=== PATIENT | female | born 2005 | race Caucasian/White ===

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

== ENCOUNTER 2025-01-29 07:44 | Outpatient (CLI) | payer BC, SELFPAY | END 2025-01-29 07:45 | disposition home or self-care (01) | LOC: US 07:45 | PROVIDERS: PCP Family Medicine; Visit Provider Obstetrics & Gynecology | DX: O24.419 Gestational diabetes mellitus in pregnancy, unspecified control (principal); Z3A.19 19 weeks gestation of pregnancy | CPT/HCPCS: 76811 ==

== ENCOUNTER 2025-04-03 12:59 | Outpatient (CLI) | payer BC, SELFPAY ==
--- NOTE | 2025-04-03 13:00 | CRLHL7_ITS ---
For Patients: As a result of the Century Cures Act, medical imaging exams and procedure reports are released immediately into your electronic medical record. You may view this report before your referring provider. If you have questions, please contact your health care provider. OB ULTRASOUND FOLLOW-UP, 04/03/2025 CLINICAL HISTORY: Type 2 diabetes mellitus with hyperglycemia. TECHNIQUE: Real time delgado scale imaging of the fetus was performed. Transabdominal imaging performed. COMPARISON: 01/29/2025, 12/17/2024, 10/29/2024. FINDINGS: LMP: 08/25/2024. OBED by US: 06/24/2025. GA: 28 weeks 2 days. CERVIX: Not visualized. POSITIONING: Vertex. AMNIOTIC FLUID: 5.8 cm SDP. PLACENTA: Technique: TA. Placenta Position: Posterior, right wall. DOPPLERS: Heart Rate: 145 bpm. BIOMETRY: BPD: 8.1 cm, 32 weeks 4 days. >97% HC: 29.1 cm, 32 weeks 1 day. >97% AC: 27.0 cm, 31 weeks 0 days. >97% FL: 5.5 cm, 29 weeks 0 days. 58.2% FL/AC Ratio: 20.4% HC/AC Ratio: 1.1. EFW: 1613 grams, 3 lb, 9 oz. Age by this US: 31 weeks 1 day. OBED by this US: 06/04/2025. Percentile by OBED: >97% IMPRESSION: 1. Sonographic gestational age 31 weeks 1 day and sonographic due date 06/04/2025. Sonographic age is 20 days ahead of the clinical age. 2. Estimated weight greater than 97th percentile. BPD, HC and AC are all greater than 97th percentile. 3. Multiple small placental lakes are present, likely incidental. Jack Fontana M.D. Diagnostic Radiologist [email or web address] Transcribed: 12:52 pm DW/Dictated by: Jack Fontana MD @ 04/04/2025 12:32:00 PM (Electronically Signed)
== END 2025-04-03 13:00 | disposition home or self-care (01) ==
LOC: US 12:59
PROVIDERS: PCP Family Medicine; Visit Provider Obstetrics & Gynecology
DX: O24.419 Gestational diabetes mellitus in pregnancy, unspecified control (principal); O99.213 Obesity complicating pregnancy, third trimester; E66.01 Morbid (severe) obesity due to excess calories; Z68.41 Body mass index [BMI] 40.0-44.9, adult; O36.63X0 Maternal care for excessive fetal growth, third trimester, not applicable or unspecified; Z3A.28 28 weeks gestation of pregnancy
CPT/HCPCS: 76816; 87086

== ENCOUNTER 2025-04-03 14:17 | Outpatient (CLI) | payer BC, SELFPAY | END 2025-04-03 14:18 | disposition home or self-care (01) | LOC: NFLDREF 14:17 | PROVIDERS: PCP Family Medicine; Visit Provider Obstetrics & Gynecology | DX: R10.2 Pelvic and perineal pain (principal); Z11.3 Encounter for screening for infections with a predominantly sexual mode of transmission | CPT/HCPCS: 86592; 87086 ==

== ENCOUNTER 2025-04-29 13:45 | Outpatient (CLI) | payer BC, SELFPAY ==
--- NOTE | 2025-04-29 14:00 | CRLHL7_ITS ---
For Patients: As a result of the Cures Act, medical imaging exams and procedure reports are released immediately into your electronic medical record. You may view this report before your referring provider. If you have questions, please contact your health care provider. OB ULTRASOUND OBED by US: 06/24/2025. GA: 32 w, 0 d. Single. Comparison: Ultrasound 04/03/2025, 01/29/2025, 12/17/2024. INDICATION: Obesity. TECHNIQUE: Real time grayscale imaging of the fetus was performed. Transabdominal. CERVIX: Not visualized. POSITIONING: Vertex. AMNIOTIC FLUID: 5.6 cm. SDP (N: greater than 2 x 1 cm) BIOPHYSICAL PROFILE: 2: Gross body movements 2: tone 2: Respiratory activity 2: Amniotic fluid SDP (N: greater than 2 x 1 cm) 06/20: Total score PLACENTA: Technique: Transabdominal. PLACENTA POSITION: Posterior, right wall. DOPPLER: heart rate: 159 bpm. BIOMETRY: BPD: 8.8 cm. 35 w, 3 d, >97 percent. HC: 31.9 cm. 36 w, 0 d, 97 percent. AC: 30.8 cm. 34 w, 5 d, >97 percent. FL: 6.3 cm. 32 w, 5 d, 59 percent. FL/AC ratio: 20.59 percent. HC/AC ratio: 1.04. EFW: 2418 g. Weight: 5 lbs, 5 oz. age by this US: 34 w, 5 d. OBED by this US: 06/05/2025. Percentile by OBED: 97 percent. IMPRESSION: 1. Normal biophysical profile score 8/8. 2. Sonographic gestational age 34 weeks 5 days and sonographic due date 06/05/2025. Sonographic age is 19 days ahead of the clinical age. 3. Estimated weight 97th percentile. Abdominal circumference and BPD greater than 97th percentile. Jack Fontana M.D. Diagnostic Radiologist [email or web address] JESE/holland lino/Dictated by: Jack Fontana MD @ 04/29/2025 3:49:00 PM (Electronically Signed)
== END 2025-04-29 13:46 | disposition home or self-care (01) ==
LOC: US 13:45
PROVIDERS: PCP Family Medicine; Visit Provider Obstetrics & Gynecology
DX: O99.213 Obesity complicating pregnancy, third trimester (principal); Z3A.32 32 weeks gestation of pregnancy
CPT/HCPCS: 76816; 76819; T1013

== ENCOUNTER 2025-05-06 13:52 | Outpatient (CLI) | payer BC, SELFPAY ==
--- OUTSIDE RECORDS SUMMARY | 2025-03-26 10:00 | XMS_ITS | Encounter Summary ---
Author Organization [facility] Address [address] [place] [id number] Care Team Providers Care Hip Hop Artist Name Role Phone Marge Arevalo MD Primary Care Provider + Norma Aquino RD Unavailable [phone] Unavailable Encounter Details Date Type Department Care Team (Late st Contact Info) Description 03/26/2025 10:00 AM CDT Allied Health/Nurse Visit [facility] [address] [facility] [address] [place] [phone] [facility] [address] [place], [place] [id number] Type 2 diabetes mellitus affecting in second trimester, antepartum (Primary Dx) Social History Tobacco Use Types Packs/Day Years Used Date Smoking Tobacco: Never Assessed Estimated Date of Delivery Comme nts Yes 06/24/2025 Based on Ultraso und Sex and Gender Information Value Date Recorded Sex Assigned at Not on file 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 Diabetes Self-Management Education & Support Presents for: Pre-Existing Diabetes and Type of Service: In Person Visit Blood Glucose/Ketone Log: Brenda reports she does not have glucose readings for the visit today. Several weeks ago she tried wearing Faheem glucose sensors. The pharmacist assisted with putting the first one on. She said it quit working within 24 hours. She replaced the sensor, and had another sensor failure within 24 hours.She states she was placing the sensor on the back of arm, and it looked secure. Brenda has a fingerstick glucose meter but does not like to poke her finger. We discussed possibly trying to wear a sensor on her stomach vs back of arm. Stressed the importance of checking a glucose reading 4x/day as she has an Endo appt next week on 04/03 and should bring glucose data to that appt. Assessment Fasting blood glucoses: na% in target. After breakfast: na% in target. Before lunch: na% in target. After lunch: na% in target. Before dinner: na% in target. After dinner: na% in target. Opportunities for ongoing education and support in diabetes-self management were discussed. PLAN: Monitoring: -- Continue to check BG 4 times daily (fasting and one hour(s) after each meal). Healthy Eating: -- Eat 3 well-balanced meals (My Plate method), and small snacks between meals as needed. Avoid sugary beverages, such as juice and pop. Topics to cover at upcoming visits: Healthy Eating and Monitoring See Care Plan for co-developed, patient-stated behavior change goals. Education Materials Provided: No new materials provided today Subjective/Objective Accompanied by: Self How confident are you filling out medical forms by yourself:: Quite a bit Difficulty affording diabetes medication?: No Difficulty affording diabetes testing supplies?: No Other concerns: None Cultural Influences/Ethnic Background: Choose not to answer Diabetes Symptoms & Complications Patient Problem List and Family Medical History reviewed for relevant medical history, current medical status, and diabetes risk factors. Vitals: LMP 08/25/2024 Estimated Date of Delivery: Jun 24, 2025 Labs: No results found for: A1C, HEMOGLOBINA1 No results found for: GLC No results found for: LDL No results found for: HDL No results found for: GFRESTIMATED No results found for: GFRESTBLACK No results found for: CR No results found for: MICROL, UMALCR, UCRR Last 3 BP: BP Readings from Last 3 Encounters: 12/17/24 131/76 History Smoking Status Not on file Smokeless Tobacco Not on file 03/26/2025 Healthy Eating Cultural/scientologist diet restrictions? No Meal planning/habits None How many times a week on average do you eat food made away from home (restaurant/take-out)? 4 Meals include Dinner;Evening Snack;Breakfast;Lunch Breakfast 9am: 2 faheem crackers, coffee w/ 1 tsp sugar Lunch 1pm: sandwich (ham, chowdhury) OR quesadilla, water/8 oz gatorade/12oz pop Dinner 5 PM: broccoli cheese soup Snacks crackers + pb OR toast w/ butter Other carrots + ranch OR cucumbers Beverages Water;Milk;Soda;Other (see Comments) 1 can pop/day 03/26/2025 Monitoring Blood Glucose Meter Unknown Any changes to above medications since becoming : no Care Plan and Education Provided: Risks and complications of elevated glucose and diabetes during . Patient advised to discuss with OB if experiencing symptoms of complications., Healthy eating: following a healthy diet, Monitoring: Frequency of monitoring and Glucose goals: Fasting glucose 70-95 mg/dL, and either 1-hour post-meal glucose less than 140 mg/dL, or 2-hour post-meal glucose less than 120 mg/dL, and Working with the care team (conservation educator, Brake Drum Lathe Operator, SUPERVISOR STOCK RANCH to manage glucose during ) AGUSTIN Harper [facility] Time Spent: 15 minutes Encounter Type: Individual Diabetes medication dose changes were made via the [facility] Standing Orders under the patient's referring provider. documented in this encounter Plan of Treatment Not on file documented as of this encounter Visit Diagnoses Diagnosis Type 2 diabetes mellitus affecting in second trimester, antepartum- Primary documented in this encounter Care Teams Hip Hop Artist Relationship Specialty Start Date End Date Marge Arevalo MD [facility] [address] [address] PCP - General Family Medicine 10/30/[address] [place] [address] [place] [address] Sports Writer Dietitian, Registered 11/04/[address] [place] [address] [place] [address] Sports Writer Dietitian, Registered 02/24/25 documented as of this encounter
--- OUTSIDE RECORDS SUMMARY | 2025-04-03 08:00 | XMS_ITS | Encounter Summary ---
Author Organization [employer] Address [address], [place] [address] Care Team Providers Care Inspector Multifocal Lens Name Role Phone Pcp, Pt Teena GUADALUPE Primary Care Provider [phone] Reason for Referral * Consult/Transfer Care (Routine) - New Request Specialty Diagnoses / Procedures Referred By Contac t Referred To Contact Diagnoses Type 2 diabetes mellitus with hyperglycemia, without long-term current use of insulin (HRC) Type 2 diabetes mellitus during , antepartum Cindy Madera MD [address] [place] [address] Phone: tel: fax: Referral ID Status Reason Start Date Expiration Date V isits Requested Visits Authorized [id number] New Request 04/03/2025 07/03/2026 1 1 Scheduling Instructions Your clinician has recommended an appointment with [facility] [place] [facility]. You may call [phone] to schedule your appointment. We suggest you [...] of Care A1c: No results found for: [id number] Reason for Visit * Reason Comments CONSULT Encounter Details Date Type Department Care Team (Late st Contact Info) Description 04/03/2025 8:00 AM CDT Office Visit [facility] [address] [place] [address] Cindy Madera MD [facility] [place] [address] Type 2 diabetes mellitus with [...] day. Start using Freestyle Faheem CGM. See nurses educator. Our team will reach out to you to schedule follow-up appointments. documented in this encounter Progress Notes * Cindy Madera MD - 04/03/2025 8:00 AM CDT [facility] Department of Endocrinology, Diabetes and Metabolism Clinic Note Name: Brenda Calvin Reason for visit: Type 2 diabetes during HPI: Brenda Calvin is a 19 y.o. female referred by Kecia Morales MD (fax [phone]) for type 2 diabetes during . 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 Pertinent Family [...] 2 weeks throughout . Cindy Madera MD Powertrain Design Engineer [facility] documented in this encounter Plan of Treatment Upcoming Encounters Date Type Department Care Team (Late st Contact Info) Description 05/08/2025 11:30 AM CDT Telemedicine [place] [address] Endocrinology [facility]0 [place] [address] Johana Alcaraz PA-C [facility] [place] [address] 05/22/2025 11:00 AM CDT Telemedicine [facility] [address] [place] [address]. [place] [address] Shannan Marcos PAChristian [address] [place], [place] [address] 06/05/2025 11:30 AM CDT Telemedicine [facility] [address] Endocrinology [address] [facility]. [place], [place] [id number] Johana Alcaraz PA-C [address] [place], [place] [address] Scheduled Referrals Name Type Priority Associated Diagnoses [...] Type 2 diabetes mellitus during , antepartum Type 2 diabetes mellitus with hyperglycemia, without long-term current use of insulin (HRC)- Primary documented in this encounter Care Teams Inspector Multifocal Lens Relationship Specialty Start Date End Date Pcp, [place] [address] PCP - General 04/03/25 documented as of this encounter
--- OUTSIDE RECORDS SUMMARY | 2025-04-11 07:30 | XMS_ITS | Encounter Summary ---
Author Organization [employer] Address [address], [place] [address] Care Team Providers Care Operations Clerk Name Role Phone Pcp, Pt Teena GUADALUPE Primary Care Provider [phone] Reason for Visit * Reason Comments DIABETES EDUCATION * Consult/Transfer Care (Routine) - New Request Specialty Diagnoses / Procedures Referred By Contac t Referred To Contact Diagnoses Type 2 diabetes mellitus with hyperglycemia, without long-term current use of insulin (HRC) Type 2 diabetes mellitus during , antepartum Cindy Madera MD [address] [place] [address] Phone: tel: fax: Referral ID Status Reason Start Date Expiration Date V isits Requested Visits Authorized [id number] New Request 04/03/2025 07/03/2026 1 1 Encounter Details Date Type Department Care Team (Late st Contact Info) Description 04/11/2025 7:30 AM CDT Diabetes Ed [place] [facility] [address] [address] Kristina Strauss, RN Type 2 diabetes mellitus [...] included. Diabetes Education Visit: 04/11/2025 Diabetes Education: [phone] Endo: [phone] To learn more about taking care of [...] in your sensor box or go to https://www.freeThe Codemasters Software Companyyle.Prime Advantage/us-en/uaw-xq-xlb-up.html to watch instructional videos. The Faheem 3 sensor will work for 14 days. The Faheem 3 plus will work for 15 days. After the 14-15 days you will need to remove sensor and apply a new sensor. The Faheem 3 pancho or Roy will alert you when the sensor has [...] your glucose reading. Libre3 Sensor Alarms -Your Wikiae3 reader device or smartphone with the Libre3 [...] or stops working early, you can contact [employer] Customer Service and see if they will send you a replacement sensor. Contact by phone at or online at FreestyleLibre.us, click on Support, then Sensor Support Request. To find the serial number for the sensor you're reporting, you can go into your [employer] pancho and in the Menu go to About and you'll see the number under Last 3 sensors Call [employer] for Technical Support: - Available 7 days [...] it is not covered, please call the [employer] Customer Service Voucher Line at [phone]. 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 Just Starting 04/11/2025 Reducing Risk of Diabetes Complications Call Endocrinology ([phone]) if you have two unexplained high blood [...] Info) Description 05/08/2025 11:30 AM CDT Telemedicine [place] [address] [place] [address] [place] [address] Johana Alcaraz PA-C [address] [place], [place] [address] 05/22/2025 11:00 AM CDT Telemedicine [facility] [address] [place] [address]. [place], [place] [address] Shannan Marcos PA-C [address] [place], [place] [address] 06/05/2025 11:30 AM CDT Telemedicine [facility] [address] [place] [address]. [place], [place] [address] Johana Alcaraz PA-C [address] [place], [place] [address] Scheduled Referrals Name Type Priority Associated Diagnoses [...] insulin (HRC)- Primary Type 2 diabetes mellitus with hyperglycemia, without long-term current use of insulin (HRC)- Primary documented in this encounter Care Teams Operations Clerk Relationship Specialty Start Date End Date Pcp, [place] [address] PCP - General 04/03/25 documented as of this encounter
--- NOTE | 2025-05-06 14:00 | CRLHL7_ITS ---
For Patients: As a result of the Cures Act, medical imaging exams and procedure reports are released immediately into your electronic medical record. You may view this report before your referring provider. If you have questions, please contact your health care provider. OB ULTRASOUND OBED by US: 06/24/2025. GA: 33 w, 0 d. Single. INDICATION: Obesity complicating . TECHNIQUE: Real time grayscale imaging of the fetus was performed. Transabdominal. CERVIX: Not visualized. POSITIONING: Vertex. AMNIOTIC FLUID: 5.9 cm. SDP (N: greater than 2 x 1 cm) BIOPHYSICAL PROFILE: 2: Gross body movements 2: tone 2: Respiratory activity 2: Amniotic fluid SDP (N: greater than 2 x 1 cm) 8/8: Total score PLACENTA: Technique: Transabdominal. PLACENTA POSITION: Posterior. DOPPLER: heart rate: 147 bpm. IMPRESSION: Normal biophysical profile score 8/8. Jack Fontana M.D. Diagnostic Radiologist [email or web address] JESE/[email or web address] lino/Dictated by: Jack Fontana MD @ 05/06/2025 4:35:00 PM (Electronically Signed)
--- OUTSIDE RECORDS SUMMARY | 2025-05-07 01:00 | XMS_ITS | Encounter Summary ---
Author Organization [facility] Address [address], [place] [address] Care Team Providers Care Horse Buyer Name Role Phone Pcp, Pt Declines Primary Care Provider Encounter Details Date Type Department Care Team (Late st Contact Info) Description 04/18/2025 Notes/Orders [facility] Diabetes Education [address] [id number] Fina Shahid RN, [facility] Social History Tobacco Use Types Packs/Day Years Used Date Smoking Tobacco: Never Smokeless Tobacco: Never Comments Unknown Sex and Gender Information Value Date Recorded Sex Assigned at Not on file Legal Sex Female 9:02 AM CDT Gender Identity Not on file Sexual Orientation Not on file documented as of this encounter Plan of Treatment Upcoming Encounters Date Type Department Care Team (Late st Contact Info) Description 05/08/2025 11:30 AM CDT Telemedicine [facility] [address] [facility] [place], [place] [phone] Johana Alcaraz PA-C [address] [place], [place] [phone] 05/22/2025 11:00 AM CDT Telemedicine [facility] [address] [facility] [place], [place] [phone] Shannan Marcos PA-C [address] [place], [place] [phone] 06/05/2025 11:30 AM CDT Telemedicine [place] [id number] [facility] [address] [facility]. [place], [place] [phone] Johana Alcaraz PA-C [address] [place], [place] [phone] documented as of this encounter Visit Diagnoses Not on filedocumented in this encounter Care Teams Horse Buyer Relationship Specialty Start Date End Date Pcp, Pt MD Teena [place], [place] [phone] PCP - General 04/03/25 documented as of this encounter
--- OUTSIDE RECORDS SUMMARY | 2025-05-07 01:01 | XMS_ITS | Clinical Summary ---
Author Organization [facility] Address [address] [place] [address] Care Team Providers Care Airfield Defence Guard Name Role Phone Marge Arevalo MD Primary Care Provider + Norma Aquino RD Unavailable [phone] Unavailable [phone] Allergies No known active allergies Medications metFORMIN (GLUCOPHAGE XR) 500 MG 24 hr tablet Take 500 mg by mouth every morning. 11/26/2024 Active omeprazole (PRILOSEC) [address] capsule Take 40 mg by mouth daily. 11/26/2024 Active ondansetron (ZOFRAN ODT) 4 MG ODT tab Take 4 mg by mouth every 6 hours as needed. 11/26/2024 Active Vit-Fe Fumarate-FA ( VITAMIN PO) Take 1 tablet by mouth daily. Active Encounters Date Type Department Care Team Description 03/26/2025 10:00 AM CDT Allied Health/Nurse Visit [facility] [address] [place] [phone] [address] Type 2 diabetes mellitus affecting in second trimester, antepartum (Primary Dx) 03/26/2025 Travel 03/06/2025 9:45 AM CDT Office Visit [facility] [address] [place] [phone] [address] Type 2 diabetes mellitus affecting in second trimester, antepartum (Primary Dx) 03/06/2025 Travel 02/21/2025 Transcribe Orders GENERIC EXTERNAL DATA DEPARTMENT Marge Arevalo MD Type 2 diabetes mellitus with hyperglycemia (H) (Primary Dx); Morbid (severe) obesity due to excess calories (H); Body mass index 40.0-44.9, adult (H); Encounter for supervision of normal , unspecified, unspecified trimester 02/18/2025 11:46 AM CDT - 02/18/2025 11:59 PM CDT Hospital Encounter [facility] [address] [place] [phone] Laura Browne MD with type 2 diabetes mellitus in first trimester; Obesity affecting , antepartum, unspecified obesity type Discharge Disposition: Home or Self Care 02/18/2025 Travel 02/05/2025 Medical Correspondence [facility] Information Management [address] [facility] [address] [place] [address] Scan, Non-Provider from Last 3 Months Social History Tobacco Use Types Packs/Day Years Used Date Smoking Tobacco: Never Assessed Estimated Date of Delivery Comme nts Yes 06/24/2025 Based on Ultraso und Sex and Gender Information Value Date Recorded Sex Assigned at Not on file Legal Sex Female 1:56 PM DIRECTOR OF MARKET ANALYSIS Gender Identity Not on file Sexual Orientation Not on file Last Filed Vital Signs Vital Sign Reading Time Taken Comments Blood Pressure 131/76 12/17/2024 2:05 PM DIRECTOR OF MARKET ANALYSIS Pulse 73 12/17/2024 2:05 PM DIRECTOR OF MARKET ANALYSIS Temperature - - Respiratory Rate - - Oxygen Saturation 99% 12/17/2024 2:05 PM DIRECTOR OF MARKET ANALYSIS Inhaled Oxygen Concentration - - Weight - - Height - - Body Mass Index - - Plan of Treatment Health Maintenance Due Date Last Done Comments A1C 2005 ADVANCE CARE PLANNING 2005 ANNUAL REVIEW OF HM ORDERS 2005 BMP 2005 CHLAMYDIA SCREENING 2005 DIABETIC FOOT EXAM 2005 EYE EXAM 2005 LIPID 2005 MICROALBUMIN 2005 YEARLY PREVENTIVE VISIT 2008 HIV SCREENING 2020 MENINGITIS B VACCINE (1 of 2 - Standard) 2021 HEPATITIS C SCREENING 2023 PNEUMOCOCCAL VACCINE: PEDIATRICS (0 to 5 YEARS) AND AT-RISK PATIENTS (6 to 49 YEARS) (1 of 2 - PCV) 2024 12/18/2006, 01/17/2006, 2005, Additional history exists COVID-19 VACCINE (3 - season) 2024 04/24/2021, 04/03/2021 PHQ-2 (once per calendar year) 2024 OBGCT (OB) 03/04/2025 TDAP VACCINE () 03/25/2025 DTAP/TDAP/TD VACCINE (8 - Td or Tdap) 03/17/2032 03/17/2022, 07/26/2018, 09/16/2010, Additional history exists ZOSTER VACCINE (1 of 2) 2055 HEPATITIS B VACCINE Completed 01/17/2006, 2005, 2005 HIB VACCINE Completed 12/18/2006, 04/2006, 2005 IPV VACCINE Completed 09/16/2010, 05/2006, 2005, Additional history exists VARICELLA VACCINE Completed 09/16/2010, , 08/29/2006 MENINGITIS VACCINE Aged Out 07/26/2018 No longer eligible based on patient's age to complete this topic HPV VACCINE Completed 08/13/2021, 07/26/2018 INFLUENZA VACCINE Completed 10/29/2024, , 08/11/2022, Additional history exists MATERNAL SCREENING DISCUSSION Completed 12/17/2024 RSV VACCINE (No Doses Required) Completed Procedures Procedure Name Priority Date/Time Associated Diagnosis Comments ECHO COMPLETE Routine 02/18/2025 1 2:37 PM CDT with type 2 diabetes mellitus in first trimester Obesity affecting , antepartum, unspecified obesity type [facility]AD NON-INVASIVE SCREENING PREQUEL Routine 12/17/2024 2:54 PM DIRECTOR OF MARKET ANALYSIS Encounter for screening of mother from Last 3 Months or Most Recently Relevant to Health Maintenance Results * ECHO COMPLETE (02/18/2025 12:37 PM CDT) Anatomical Region Laterality Modality Echocardiography 02/18/2025 11:5 4 AM CDT Narrative 02/18/2025 12:[address] [facility] [id number]^PAVAN^LAURA Study ID: [id number] [facility] [address] [place] [address] Echocardiogram Name: DOVEBRENDA CALI Study Date: 02/18/2025 11:54 AM Patient Location: [facility] Gender: Female Patient Class: Outpatient : 2005 Age: 19 yrs Ordering Provider: LAURA BROWNE Referring Provider: LAURA BROWNE Performed By: Rolanda Carrero MD Reading Physician: Jacqueline Doe MD Reason For Study: with type 2 diabetes mellitus in first trimester, Obes Data: Number of fetuses: This is a robles gestation. Due date: 06/24/2025. Gestational age: 22w0d. Specific Indication: echocardiogram performed for fetus with suspected congenital heart disease. CONCLUSIONS Normal cardiac anatomy. heart rate is regular at 130 bpm. No hydrops Difficult study due to position and poor imaging windows. The results of the echocardiogram were explained to the patient. She is aware that the study was within normal limits with no major cardiac abnormalities. She is aware of the general limitations of echocardiography. Technical Information: A complete two dimensional, MMODE, spectral and color Doppler echocardiogram is performed. Difficult study due to position and poor imaging windows. position and segmental anatomy: The fetus in vertex position. The heart is in left chest. The cardiac apex points towards the left. There is normal atrial arrangement, with concordant atrioventricular and ventriculoarterial connections. The abdominal aorta is to the left of the spine. There is a left sided stomach. Systemic and pulmonary veins: The systemic venous return is normal. At least one right and one left pulmonary veins are seen returning to the left atrium. Atria and atrial septum: Normal right atrial size. The left atrium is normal in size. The flap of the foramen ovale opens in to the left atrium. There is laminar kczmf-mn-laaw shunting across the foramen ovale. Atrioventricular valves: The tricuspid valve is normal in appearance and motion. There is no tricuspid insufficiency. The mitral valve is normal in appearance and motion. There is no mitral valve insufficiency. Ventricles and ventricular septum: Normal right ventricular size. Normal right ventricular systolic function. Normal left ventricular size. Normal left ventricular systolic function. No obvious ventricular level shunting. Outflows tracts: Normal great artery relationship. The right ventricular outflow tract is normal in caliber. The pulmonary valve has normal appearance and motion. There is normal flow across the pulmonary valve. There is unobstructed flow through the left ventricular outflow tract. The aortic valve has normal appearance and motion. There is normal flow across the aortic valve. Great arteries: The main pulmonary artery has normal appearance. There is unobstructed flow in the main pulmonary artery. The pulmonary artery bifurcation is normal. There is unobstructed flow in both branch pulmonary arteries. The ductus arteriosus has normal appearance with normal antegrade flow. There is unobstructed antegrade flow in the ascending aorta. The aortic arch appears normal. There is unobstructed antegrade flow in the aortic arch. Effusions and extracardiac findings: No pericardial effusion. No hydrops. cardiac rhythm: heart rate is regular at 130 bpm. Doppler: There is normal flow in the ductus venosus, umbilical artery and umbilical vein. echocardiography cannot rule out small atrial or ventricular septal defects, persistent ductus arteriosus, mild coarctation of the aorta, partial anomalous pulmonary venous return, minor anatomic valve anomalies or coronary artery anomalies. Reading Physician: Jacqueline Doe MD 02/18/2025 12:41 PM Procedure Note Jacqueline Doe MBBS - 02/18/2025 [id number]^PAVAN^LAURA Study ID:[id number] [facility] [address] Echocardiogram Name: BRENDA MILLER Study Date: 02/18/2025 11:54 AM Patient Location:[facility] Gender: Female Patient Class:Outpatient : 2005 Age: 19 yrs Ordering Provider: LAURA BROWNE Referring Provider: LAURA BROWNE Performed By: Rolanda Carrero MD Reading Physician: Jacqueline Doe MD Reason For Study: with type 2 diabetes mellitus in firsttrimester, Obes Data: Number of fetuses: This is a robles gestation. Duedate: 06/24/2025. Gestational age: 22w0d. Specific Indication: echocardiogram performed for fetus with suspected congenital heart disease. CONCLUSIONS Normal cardiac anatomy. heart rate is regular at 130 bpm. No hydrops Difficult study due to position and poor imaging windows. The results of the echocardiogram were explained to the patient. Sheis aware that the study was within normal limits with no major cardiac abnormalities. She is aware of the general limitations of echocardiography. Technical Information: A complete two dimensional, MMODE, spectral and color Doppler echocardiogram is performed. Difficult study due to position andpoor imaging windows. position and segmental anatomy: The fetus in vertex position. The heart is in left chest. The cardiacapex points towards the left. There is normal atrial arrangement, withconcordant atrioventricular and ventriculoarterial connections. The abdominal aortais to the left of the spine. There is a left sided stomach. Systemic and pulmonary veins: The systemic venous return is normal. At least one right and one left pulmonary veins are seen returning to the left atrium. Atria and atrial septum: Normal right atrial size. The left atrium is normal in size. The flap ofthe foramen ovale opens in to the left atrium. There is amucvoeoogag-hp-wxcm shunting across the foramen ovale. Atrioventricular valves: The tricuspid valve is normal in appearance and motion. There is notricuspid insufficiency. The mitral valve is normal in appearance and motion. Thereis no mitral valve insufficiency. Ventricles and ventricular septum: Normal right ventricular size. Normal right ventricular systolicfunction. Normal left ventricular size. Normal left ventricular systolic function.No obvious ventricular level shunting. Outflows tracts: Normal great artery relationship. The right ventricular outflow tract is normal in caliber. The pulmonary valve has normal appearance and motion.There is normal flow across the pulmonary valve. There is unobstructed flowthrough the left ventricular outflow tract. The aortic valve has normal appearanceand motion. There is normal flow across the aortic valve. Great arteries: The main pulmonary artery has normal appearance. There is unobstructedflow in the main pulmonary artery. The pulmonary artery bifurcation is normal.There is unobstructed flow in both branch pulmonary arteries. The ductusarteriosus has normal appearance with normal antegrade flow. There is unobstructed antegrade flow in the ascending aorta. The aortic arch appears normal.There is unobstructed antegrade flow in the aortic arch. Effusions and extracardiac findings: No pericardial effusion. No hydrops. cardiac rhythm: heart rate is regular at 130 bpm. Doppler: There is normal flow in the ductus venosus, umbilical artery andumbilical vein. echocardiography cannot rule out small atrial or ventricularseptal defects, persistent ductus arteriosus, mild coarctation of the aorta,partial anomalous pulmonary venous return, minor anatomic valve anomalies orcoronary artery anomalies. Reading Physician: Jacqueline Doe MD 02/18/2025 12:41 PM us Laura Browne MD CV PEDS ECHO ORDERABLES Edited Result - Final * [employer] Non-Invasive Screening???Prequel (12/17/2024 2:54 PM DIRECTOR OF MARKET ANALYSIS) See Scanned Result [employer] NON-INVASIVE SCREENING PREQUEL-Scann ed 12/27/2024 10:00 AM DIRECTOR OF MARKET ANALYSIS [facility] Blood STRUCTURE OF LEFT UPPER LIMB / Unknown Venipuncture / Unknown 12/17/2024 2:54 PM DIRECTOR OF MARKET ANALYSIS 12/17/2024 2:57 PM DIRECTOR OF MARKET ANALYSIS us Lu Gaviria [facility] - BLOOD ORDERABLES Final Result [facility] [address] [place] [id number], [facility] [phone] from Last 3 Months or Most Recently Relevant to Health Maintenance Insurance [facility] Care Teams Airfield Defence Guard Relationship Specialty Start Date End Date Marge Arevalo MD [facility] [address] [place] [address] PCP - General Family Medicine 10/30/[address] [place] [address] [place] [address] Engine Maintenance Mechanic Dietitian, Registered 11/04/[address] [place] [address] [place] [address] Engine Maintenance Mechanic Dietitian, Registered 02/24/25
--- OUTSIDE RECORDS SUMMARY | 2025-05-07 01:01 | XMS_ITS | Encounter Summary ---
Author Organization [facility] Address [address] [place] [address] Care Team Providers Care Lumber Grader Name Role Phone Marge Arevalo MD Primary Care Provider + Norma Aquino RD Unavailable [phone] Unavailable [phone] Encounter Details Date Type Department Care Team (Latest Contact Info) Description 03/26/2025 Travel Social History Tobacco Use Types Packs/Day Years Used Date Smoking Tobacco: Never Assessed Estimated Date of Delivery Comme nts Yes 06/24/2025 Based on Ultraso und Sex and Gender Information Value Date Recorded Sex Assigned at Not on file Legal Sex Female 1:56 PM BARREL LAPPER Gender Identity Not on file Sexual Orientation Not on file documented as of this encounter Plan of Treatment Not on file documented as of this encounter Visit Diagnoses Not on filedocumented in this encounter Care Teams Lumber Grader Relationship Specialty Start Date End Date Marge Arevalo MD [facility] [address] [place] [address] PCP - General Family Medicine 10/30/[address] [place] [address] [place] [address] Court Magistrate Dietitian, Registered 11/04/[address] [place] [address] [place] [address] Court Magistrate Dietitian, Registered 02/24/25 documented as of this encounter
--- OUTSIDE RECORDS SUMMARY | 2025-05-07 01:01 | XMS_ITS | Encounter Summary ---
Author Organization [facility] Address [facility] [place] [address] Care Team Providers Care Acid Operator Name Role Phone Marge Arevalo MD Primary Care Provider + Norma Aquino RD Unavailable [phone] Unavailable [phone] Encounter Details Date Type Department Care Team (Late st Contact Info) Description 11/21/2024 Care Coordination [facility] [address] [address] Becky Oviedo RN Social History Tobacco Use Types Packs/Day Years Used Date Smoking Tobacco: Never Assessed Comments Unknown Sex and Gender Information Value Date Recorded Sex Assigned at Not on file Legal Sex Female 1:56 PM ARCHITECTURE INSTRUCTOR Gender Identity Not on file Sexual Orientation Not on file documented as of this encounter Plan of Treatment Not on file documented as of this encounter Visit Diagnoses Not on filedocumented in this encounter Care Teams Acid Operator Relationship Specialty Start Date End Date Marge Arevalo MD [facility] [address] [place] [address] PCP - General Family Medicine 10/30/[address] [place] [address] [place] [address] Co Op Dietitian, Registered 11/04/[address] [place] [address] [place] [address] Co Op Dietitian, Registered 02/24/25 documented as of this encounter
--- OUTSIDE RECORDS SUMMARY | 2025-05-07 01:01 | XMS_ITS ---
Author Organization [facility] Address [address] [place] [address] Care Team Providers Care Epic Manager Name Role Phone Marge Arevalo MD Primary Care Provider + Norma Aquino RD Unavailable [phone] Unavailable [phone] Diabetes Self-Management Education Status:Identified (Enrolling) Start date:11/04/2024 Continued Care and Services Coordination
--- OUTSIDE RECORDS SUMMARY | 2025-05-07 01:01 | XMS_ITS | Clinical Summary ---
Author Organization [facility] Address [address], [place] [address] Care Team Providers Care Camera Supervisor Name Role Phone Pcp, Pt Teena GUADALUPE Primary Care Provider [phone] Source Comments You are receiving this document as you are listed as the primary care provider,follow-up provider, or the patient has been referred to you for consultation.This is in compliance with the Medicare andMedicaid EHR Incentive Program,which states Providers who transition their patient to another setting of careor provider of care or refers their patient to another provider of care shouldprovide summary care record for each transition of care or referral. [facility] Allergies No known active allergies Medications * This document contains information received from the source organization and may not represent a complete record from that organization. Blood Glucose Monitoring Suppl (CONTOUR NEXT EZ) w/Device KIT SMARTSIG:As Directed 5 Active Lancets (MICROLET) lancets 4 times a day. 5 Active metoclopramide (REGLAN) 10 MG tablet Take 1 Tablet (10 mg) by mouth every 6 hours as needed. 5 Active omeprazole (PRILOSEC) 40 MG capsule Take 1 Capsule (40 mg) by mouth daily. 5 Active ondansetron (ZOFRAN-ODT) 4 MG disintegrating tablet Take 1 Tablet (4 mg) by mouth every 8 hours as needed. 5 Active fluticasone propionate (FLONASE) 50 MCG/ACT nasal solution Place 1 Warner into both nostrils two times a day. 5 Active aspirin EC 81 MG enteric coated tablet Take 1 Tablet (81 mg) by mouth daily. Active vitamin-ferrous fumarate-folic acid (PRENATALPLUS) 27-1 MG tablet Take 1 Tablet by mouth daily. Active metFORMIN XR (GLUCOPHAGE XR) 500 MG 24 hour release tabletIndications:T ype 2 diabetes mellitus with hyperglycemia, without long-term current use of insulin (HRC),Type 2 diabetes mellitus during , antepartum Take 2 Tablets (1,000 mg) by mouth two times a day with meals. 360 Tablet 3 Active Continuous Glucose Sensor (FREESTYLE KORIN 3 PLUS SENSOR) MISCIndications:Typ e 2 diabetes mellitus with hyperglycemia, without long-term current use of insulin (HRC),Type 2 diabetes mellitus during , antepartum Use to monitor glucose continuously . 2 Each Active CONTOUR NEXT test stripsIndications:T ype 2 diabetes mellitus with hyperglycemia, without long-term current use of insulin (HRC),Type 2 diabetes mellitus during , antepartum Use to test 4 times a day. 400 Strip 3 Active Active Problems No known active problems Encounters * This document contains information received from the source organization and may not represent a complete record from that organization. Date Type Department Care Team Description 04/18/2025 Notes/Orders [facility] Diabetes Education [place] [address] [place] [address] Fina Shahid RN, [facility] 04/11/2025 7:30 AM CDT Diabetes Ed [facility] Diabetes [facility] [address] [place] [address] Kristina Strauss RN Type 2 diabetes mellitus with hyperglycemia, without long-term current use of insulin (HRC) (Primary Dx) 04/03/2025 8:00 AM CDT Office Visit [facility] [address] [place] [address] Cindy Madera MD Type 2 diabetes mellitus with hyperglycemia, without long-term current use of insulin (HRC) (Primary Dx); Type 2 diabetes mellitus during , antepartum 04/01/2025 Lab Requisition [facility] [address] [facility] [address] Clinician, Subha Hill MD Encounter for screening for respiratory tuberculosis 02/13/2025 Telephone [place] [address] [place] [address]. [place], [place] [id number] Kelsi Pineda MD CONSULT (DM2) 02/06/2025 Telephone [place] [address] [place] [address]. [place] [address] Nurse, [address] ([facility]) from Last 3 Months Social History Tobacco [...] Mass Index 42.4 04/03/2025 8:08 AM CDT Plan of Treatment Upcoming Encounters Date Type Department Care Team (Late st Contact Info) Description 05/08/2025 11:30 AM CDT Telemedicine [place] [address] [place] [address]. [place] [address] Johana Alcaraz PA-C [address] [place] [id number] 05/22/2025 11:00 AM CDT Telemedicine [place] [address] [place] [address]. [place], [place] [address] Shannan Marcos, PATaneshaC [address] [place] [address] 06/05/2025 11:30 AM CDT Telemedicine [facility] [address] Endocrinology [address] [place] [address] Johana Alcaraz PA-C [address] [place] [address] Health Maintenance Due Date Last Done Comments Chlamydia 2005 Diabetes: Creatinine 2005 Diabetes: Eye Exam 2005 Diabetes: Foot Exam 2005 Diabetes: HGBA1C 2005 Diabetes: Lipid Panel 2005 Diabetes: Urine Microalbumin 2005 Hep C Screening (Preventive Services) 2005 MenB Immunization Discussion 2005 HGB 2017 HIV Screening (Preventive Services) 2021 Adult Preventive Visit 2023 HepB Vaccine (1) 2024 Pneumococcal Vaccine (1 of 2 - PCV) 2024 12/18/2006, 01/17/2006, 2005, Additional history exists COVID-19 Vaccine ( - season) 2024 04/24/2021, 04/03/2021 DTaP/Tdap/Td Vaccine (8 - Tdap) 03/17/2032 03/17/2022, 07/26/2018, 09/16/2010, Additional history exists Zoster/Shingles Vaccine (1 of 2) 2055 Hib Vaccine Completed 12/18/2006, 04/2006, 2005 HepA Vaccine Completed 05/09/2008, 07/23/2007 IPV (Polio) Vaccine Completed 09/16/2010, 01/17/2006, 2005, Additional history exists MCV4 Vaccine Aged Out 07/26/2018 No longer eligi ble based on patient's age to complete this topic HPV Vaccine Completed 08/13/2021, 07/26/2018 Influenza Vaccine Completed 10/29/2024, , 08/11/2022, Additional history exists Procedures Procedure Name Priority Date/Time Associated Diagnosis Comments TB QUANTIFERON GOLD PLUS MITOGEN Routine 04/03/2025 4:14 PM CDT Encounter for screening for respiratory tuberculosis TB QUANTIFERON GOLD PLUS TB2 Routine 04/03/2025 4:14 PM CDT Encounter for screening for respiratory tuberculosis TB QUANTIFERON GOLD PLUS TB1 Routine 04/03/2025 4:14 PM CDT Encounter for screening for respiratory tuberculosis TB QUANTIFERON GOLD PLUS NIL Routine 04/03/2025 4:14 PM CDT Encounter for screening for respiratory tuberculosis TB QUANTIFERON GOLD PLUS Routine 04/03/2025 4:14 PM CDT Encounter for screening for respiratory tuberculosis from Last 3 Months Results * TB QuantiFERON Gold Plus Mitogen (04/03/2025 4:14 PM CDT) MITOGEN >10.000 IU/mL 04/07/2025 11:11 AM CDT [facility] Blood Venipuncture / Unknown 04/03/2025 4:14 PM CDT 04/06/2025 1:06 PM CDT us Not Found Clinician LAB_1 Final Res ult [facility] [address] [place], [place] [id number] [place] [address] * TB QuantiFERON Gold Plus TB2 (04/03/2025 4:14 PM CDT) TB2 0.508 IU/mL 04/07/2025 11:11 AM CDT [facility] Blood Venipuncture / Unknown 04/03/2025 4:14 PM CDT 04/06/2025 1:06 PM CDT us Not Found Clinician LAB_1 Final Res ult [facility] [address] * TB QuantiFERON Gold Plus TB1 (04/03/2025 4:14 PM CDT) [facility] TB1 0.144 IU/mL 04/07/2025 11:12 AM CDT [facility] Blood Venipuncture / Unknown 04/03/2025 4:14 PM CDT 04/06/2025 1:06 PM CDT us Not Found Clinician LAB_1 Final Res ult Performing Organization Address [facility] de Phone Number [facility] [address] * (ABNORMAL) TB QuantiFERON Gold Plus NIL (04/03/2025 4:14 PM CDT) [facility] TB QuantiFERON Gold Plus Positive, M. tuberculosis Infection Likely(A) Negative, M. tuberculosis Infection NOT likely 04/07/2025 11:12 AM CDT [facility] NIL 0.116 IU/mL 04/07/2025 11:12 AM CDT [facility] TB1-NIL 0.02 IU/mL 04/07/2025 11:12 AM CDT [facility] TB2-NIL 0.39 IU/mL 04/07/2025 11:12 AM CDT [facility] Mitogen-NIL 9.88 IU/mL 04/07/2025 11:12 AM CDT [facility] Blood Venipuncture / Unknown 04/03/2025 4:14 PM CDT 04/06/2025 1:06 PM CDT Narrative [facility] - 04/07/2025 11:12 AM CDT The results of the QuantiFERON TB Gold Plus should be correlated clinically. A single positive test in populations with a low prevalence of latent tuberculosis infection (low pretest probability), should not be taken as definitive evidence of infection. Decisions regarding retesting should be made on a case by case basis. When TB1-NIL or TB2-NIL is low (<1 IU/mL), repeat testing may alternate between positive and negative due to measurement imprecision and not necessarily a change in immune response. For more information refer to: https://www.cdc.gov/mmwr/preview/mmwrhtml/gj8963g6.htm. us Not Found Clinician LAB_1 Final Res ult [facility] [address] [place] [address], [facility] from Last 3 Months Insurance [facility] PMAP Care Teams Camera Supervisor Relationship Specialty Start Date End Date Pcp, Pt MD Teena [place], [place] [address] PCP - General 04/03/25
--- OUTSIDE RECORDS SUMMARY | 2025-05-07 01:01 | XMS_ITS | Encounter Summary ---
Author Organization [facility] Address [address], [place] [address] Care Team Providers Care Chief Engineer Waterworks Name Role Phone Pcp, Pt Declines Primary Care Provider [phone] Encounter Details Date Type Department Care Team (Late st Contact Info) Description 04/01/2025 Lab Requisition [facility] [address] [place] [place] [address] Clinician, Not Found, [place] [address] Encounter for screening for respiratory tuberculosis Social History Tobacco Use Types Packs/Day Years [...] Info) Description 05/08/2025 11:30 AM CDT Telemedicine [facility] [address] Endocrinology [address] [facility]. [place], [place] [phone] Johana Alcaraz PA-C [address] [place] [phone] 05/22/2025 11:00 AM CDT Telemedicine [facility] [address] Endocrinology [address] [facility]. [place], [place] [phone] Shannan Marcos PATaneshaC [address] [place] [address] 06/05/2025 11:30 AM CDT Telemedicine [facility] [address] [place] [address] [facility] [place] [address] Johana Alcaraz PA-C [address] [place] [address] documented as of this encounter Procedures Procedure Name Priority Date/Time Associated Diagnosis Comments TB QUANTIFERON GOLD PLUS Routine 04/03/2025 4:14 PM CDT Encounter for screening for respiratory tuberculosis TB QUANTIFERON GOLD PLUS MITOGEN Routine 04/03/2025 [...] CDT Encounter for screening for respiratory tuberculosis documented in this encounter Results * TB QuantiFERON Gold Plus Mitogen (04/03/2025 4:14 PM CDT) MITOGEN >10.000 IU/mL 04/07/2025 11:11 AM CDT [facility] Blood Venipuncture / Unknown 04/03/2025 4:14 PM CDT 04/06/2025 1:06 PM CDT us Not Found Clinician LAB_1 Final Res ult [facility] [address] [place], [place] [address] * TB QuantiFERON Gold Plus TB2 (04/03/2025 4:14 PM CDT) TB2 0.508 IU/mL 04/07/2025 11:11 AM CDT [facility] Blood Venipuncture / Unknown 04/03/2025 4:14 PM CDT 04/06/2025 1:06 PM CDT us Not Found Clinician MD LAB_1 Final Res ult Performing Organization Address [facility]/ZIP Co de Phone Number [facility] [address] [place] [address] * TB QuantiFERON Gold Plus TB1 (04/03/2025 4:14 PM CDT) TB1 0.144 IU/mL 04/07/2025 11:12 AM CDT [facility] Blood Venipuncture / Unknown 04/03/2025 4:14 PM CDT 04/06/2025 1:06 PM CDT us Not Found Clinician LAB_1 Final Res ult Performing Organization Address [facility] Phone Number [facility] [address] [place] [address] * (ABNORMAL) TB QuantiFERON Gold Plus NIL (04/03/2025 4:14 PM CDT) Pathologist [facility] TB QuantiFERON Gold Plus Positive, M. tuberculosis Infection Likely(A) Negative, M. tuberculosis Infection NOT likely 04/07/2025 11:12 AM CDT [facility] NIL 0.116 IU/mL 04/07/2025 11:12 AM CDT [facility] TB1-NIL 0.02 IU/mL 04/07/2025 11:12 AM CDT [facility] TB2-NIL 0.39 IU/mL 04/07/2025 11:12 AM CDT [facility] Mitogen-NIL 9.88 IU/mL 04/07/2025 11:12 AM CDT [facility] Blood Venipuncture / Unknown 04/03/2025 4:14 PM CDT 04/06/2025 1:06 PM CDT Narrative [facility] - 04/07/2025 11:12 AM CDT The [...] immune response. For more information refer to: https://www.cdc.gov/mmwr/preview/mmwrhtml/zo2236c9.htm. us Not Found Clinician LAB_1 Final Res ult [facility] [address] [place] [address], [facility] documented in this encounter Visit Diagnoses Diagnosis Encounter for screening for respiratory tuberculosis Screening examination for pulmonary tuberculosis Type 2 diabetes mellitus with hyperglycemia, without long-term current use of insulin (HRC)- Primary documented in this encounter Care Teams Chief Engineer Waterworks Relationship Specialty Start Date End Date Pcp, Pt Teena, [place] [address] PCP - General 04/03/25 documented as of this encounter
== END 2025-05-06 13:53 | disposition home or self-care (01) ==
LOC: US 13:53
PROVIDERS: PCP Family Medicine; Visit Provider Obstetrics & Gynecology
DX: O99.213 Obesity complicating pregnancy, third trimester (principal); E66.01 Morbid (severe) obesity due to excess calories; Z68.41 Body mass index [BMI] 40.0-44.9, adult; Z3A.33 33 weeks gestation of pregnancy
CPT/HCPCS: 76819

== ENCOUNTER 2025-05-13 13:48 | Outpatient (CLI) | payer BC, SELFPAY ==
--- OUTSIDE RECORDS SUMMARY | 2025-04-03 08:00 | XMS_ITS | Encounter Summary ---
Author Organization [facility] Address [address], [place] [address] Care Team Providers Care Safety Professional Name Role Phone Pcp, Pt Teena GUADALUPE Primary Care Provider [phone] Reason for Referral * Consult/Transfer Care (Routine) - New Request Specialty Diagnoses / Procedures Referred By Contac t Referred To Contact Diagnoses Type 2 diabetes mellitus with hyperglycemia, without long-term current use of insulin (HRC) Type 2 diabetes mellitus during , antepartum Cindy Madera MD [address] [place] [address] Phone: tel: fax: Referral ID Status Reason Start Date Expiration Date V isits Requested Visits Authorized [id number] New Request 04/03/2025 07/03/2026 1 1 Scheduling Instructions Your clinician has recommended an appointment with [facility]. You may call [phone] to schedule your appointment. We suggest you call your health insurance company about your coverage and benefits for this appointment. Question Answer Appointment Urgency? Non-Urgent Reason for visit Previously Dx or Annual Follow Up (up to 2 hrs): Group Ed as appropriate Education / Management Needs (Additional hours may be needed) , with Existing DM; Individual DM Ed Participation Barriers (To Small Group Ed)? None Certification statement I certify that I am managing this patient s condition and education Plan of Care Diabetes self-management training includes: healthy eating, physical activity, monitoring, medications, reducing risks, problem-solving, healthy coping. Changes to plan should be documented in comment box. Additional details found in standing order. Individuals may be eligible for both DSMT and MNT services in the same year. I approve the delivery of initial MNT (3hrs) and/or annual follow-up MNT (2hrs). Yes Comments T2DM during , using metformin because patient doesn't want to take insulin, may switch to glyburide, needs CGM education because not checking blood sugars often enough Other Barriers or Additional Comments: Last 2 A1c Performed in lab: No results found for: HGBA1C Last 2 Point of Care A1c: No results found for: [id number] Reason for Visit * Reason Comments CONSULT Encounter Details Date Type Department Care Team (Late st Contact Info) Description 04/03/2025 8:00 AM CDT Office Visit [facility] [address] [place] [address] Cindy Madera MD [facility] [place] [address] Type 2 diabetes mellitus with hyperglycemia, without long-term current use of insulin (HRC) (Primary Dx); Type 2 diabetes mellitus during , antepartum Social History Tobacco Use Types Packs/Day Years Used Date Smoking Tobacco: Never Smokeless Tobacco: Never Tobacco Cessation:Counseling Given: Not Answered Comments Unknown Sex and Gender Information Value Date Recorded Sex Assigned at Not on file Legal Sex Female 9:02 AM CDT Gender Identity Not on file Sexual Orientation Not on file documented as of this encounter Last Filed Vital Signs Vital Sign Reading Time Taken Comments Blood Pressure 135/68 04/03/2025 8:08 AM CDT Pulse 92 04/03/2025 8:08 AM CDT Temperature - - Respiratory Rate - - Oxygen Saturation - - Inhaled Oxygen Concentration - - Weight 122.8 kg (270 lb 11.2 oz) 04/03/2025 8:08 AM CDT Height 170.2 cm (5' 7) 04/03/2025 8:08 AM CDT Body Mass Index 42.4 04/03/2025 8:08 AM CDT documented in this encounter Patient Instructions * Patient Instructions* Cindy Madera MD - 04/03/2025 8:00 AM CDT Stop drinking soda. Try to walk after meals. Increase metformin to 2 tablets twice per day. Start using Freestyle Faheem CGM. See perinatal educator. Our team will reach out to you to schedule follow-up appointments. documented in this encounter Progress Notes * Cindy Madera MD - 04/03/2025 8:00 AM CDT [facility] Department of Endocrinology, Diabetes and Metabolism Clinic Note Name: Brenda Calvin Reason for visit: Type 2 diabetes during HPI: Brenda Calvin is a 19 y.o. female referred by Kecia Morales MD (fax [phone]) for type 2 diabetes during . Estimated due date: 06/24/25 She had 1 previous and delivered that baby on 05/07/22. She did not have diabetes during that . Diabetes diagnosis: August 2023 based on outside notes Current diabetes medications: Metformin XR 500 mg twice daily Has declined insulin HbA1c: 5.9% on 01/15/25 Recent home glucose: Fastin-120s Evening after dinner: 140s Brenda does not like checking blood sugars, so she does not always check them as recommended. She has tried using Freestyle Faheem CGMs, but stopped using them because the ones she used stopped working early. Diabetes complications: No known complications Last eye exam: June 2024 Last foot exam: Unknown; Brenda declined foot exam today, but denies symptoms of peripheral neuropathy Diet: Breakfast: skips or sometimes has milk with bread or yogurt Lunch: leftovers Dinner: meal cooked by mother; examples: meat with rice and beans, pasta with vegetables Snacks: crackers or banana with peanut butter, bread with butter, cucumbers with chevak and salt Drinks: 1-2 cans of regular soda per day, 0 calorie juice, sparkling water sometimes Physical activity: Gets some daily activity at work in [place] [facility], but does not exercise. Pertinent Family History: Type 2 diabetes: mother Physical Examination: Vitals: BP 135/68 (BP Location: Left Arm, BP Cuff Size: Regular - Long) Pulse 92 Ht 5' 7 (1.702 m) Wt 270 lb 11.2 oz (122.8 kg) BMI 42.40 kg/m?? General: Well-appearing Neurologic: Alert, answering questions appropriately Psychiatric: Affect euthymic; thought process linear and goal-directed, poor insight and judgment Assessment: Type 2 diabetes during I reviewed the possible complications of hyperglycemia during with Brenda and explained that insulin is the safest and most effective treatment for diabetes during . Brenda is not willing to take insulin at this point because she does not like the idea of using injections. Therefore, we will try to optimize her glycemic control by increasing metformin and she may be able to lower blood sugars significantly by making some lifestyle changes. If these changes do not get blood sugars to targets, we may switch to glyburide. I reviewed appropriate glucose targets during and explained the importance of checking blood sugars fasting and 1 or 2 hours after eating, but I am not confident that Brenda will check blood sugars consistently, so we have decided to try using Freestyle Faheem CGMs again. Plan: I reviewed healthy lifestyle changes that can improve glycemic control. I specifically recommended eliminating soda from Brenda's diet, keeping carbohydrate portions small to medium, eating protein with carbohydrates, and eating vegetables regularly. I encouraged walking after meals. Increase metformin XR to 1000 mg twice daily. Start using Freestyle Faheem 3+ CGM again. I have prescribed these. I have referred to diabetes education. Follow-up visits in our department every 2 weeks throughout . Cindy Madera MD Director Chemistry [facility] documented in this encounter Plan of Treatment Upcoming Encounters Date Type Department Care Team (Late st Contact Info) Description 05/22/2025 11:00 AM CDT Telemedicine [place] [address] End[address] [facility] [place] [address] Shannan Marocs PA-C [facility] [place] [address] 06/05/2025 11:30 AM CDT Telemedicine [facility] [address] [facility] [place] [address] Johana Alcaraz, PA-C [address] [place], [place] [phone] Scheduled Referrals Name Type Priority Associated Diagnoses Orde r Schedule Diabetes Education and MNT - Adult/Peds Referral Routine Type 2 diabetes mellitus with hyperglycemia, without long-term current use of insulin (HRC) Type 2 diabetes mellitus during , antepartum Ordered: 04/03/2025 documented as of this encounter Visit Diagnoses Diagnosis Type 2 diabetes mellitus with hyperglycemia, without long-term current use of insulin (HRC)- Primary Type 2 diabetes mellitus during , antepartum documented in this encounter Care Teams Safety Professional Relationship Specialty Start Date End Date Pcp, [place] [address] PCP - General 04/03/25 documented as of this encounter
--- OUTSIDE RECORDS SUMMARY | 2025-04-11 07:30 | XMS_ITS | Encounter Summary ---
Author Organization [employer] Address [address], [place] [address] Care Team Providers Care Drier Take Off Tender Name Role Phone Pcp, Pt Teena GUADALUPE Primary Care Provider [phone] Reason for Visit * Reason Comments DIABETES EDUCATION * Consult/Transfer Care (Routine) - New Request Specialty Diagnoses / Procedures Referred By Contac t Referred To Contact Diagnoses Type 2 diabetes mellitus with hyperglycemia, without long-term current use of insulin (HRC) Type 2 diabetes mellitus during , antepartum Cindy Madera MD [address] [place] [address] Phone: tel: fax: Referral ID Status Reason Start Date Expiration Date V isits Requested Visits Authorized [id number] New Request 04/03/2025 07/03/2026 1 1 Encounter Details Date Type Department Care Team (Late st Contact Info) Description 04/11/2025 7:30 AM CDT Diabetes Ed [place] [facility] [address] [address] Kristina Strauss, RN Type 2 diabetes mellitus with hyperglycemia, without long-term current use of insulin (HRC) (Primary Dx) Social History Tobacco Use Types Packs/Day Years Used Date Smoking Tobacco: Never Smokeless Tobacco: Never Comments Unknown Sex and Gender Information Value Date Recorded Sex Assigned at Not on file Legal Sex Female 9:02 AM CDT Gender Identity Not on file Sexual Orientation Not on file documented as of this encounter Patient Instructions * Patient Instructions* Kristina Strauss RN - 04/11/2025 7:30 AM CDT Images from the original note were not included. Diabetes Education Visit: 04/11/2025 Diabetes Education: [phone] Endo: [phone] To learn more about taking care of yourself when you have diabetes during (Gestational Diabetes): Taking care of yourself when you have diabetes during Checking Blood Sugar Prescriptions for your test strips, lancets and meter will be sent to your pharmacy. Refills will also be ordered. When you are running low on your supplies, contact your pharmacy to get your next refill. Check blood sugars four times per day: Before morning meal (fasting): Blood glucose target is 60 to 94 mg/dL 1 hour after the start of each meal. Blood glucose target is less than 140 mg/dL (If you check 2 hours after start of the meal instead, the target is less than 120 mg/dL) When to call to report blood sugars: Call during clinic hours if you have 2 or more unexplained high glucose tests at the same time of day within a 3 day period (example: 2 elevated fasting levels in a 3 day period). Gestational Diabetes Educators: Monday - Monday 8:00 - 4:30 pm Freestyle Faheem 3 and Faheem 3 plus CGM Instructions Freestyle Libre3 or Faheem 3 plus: This system has high/low glucose alarms. You can use the Libre3 reader device OR the Libre3 pancho on a compatible smart phone. The target range for your sensor glucose is 70-180 mg/dL. This range will set automatically. The goal for time in target in >70%. For step by step instructions for setting up the pancho and applying the sensor, see the instructions insert in your sensor box or go to https://www.freeTrumpet Searchyle.Pandora.TV/us-en/gql-aa-fmr-up.html to watch instructional videos. The Faheem 3 sensor will work for 14 days. The Faheem 3 plus will work for 15 days. After the 14-15 days you will need to remove sensor and apply a new sensor. The Faheem 3 pancho or [place] will alert you when the sensor has . The sensor will collect glucose data every minute. Consider looking at your Libre3 reader or pancho when you wake up, before and after meals and before bed to better understand how your glucose is changing throughout the day. If you check your blood sugar by finger stick and scan your sensor at about the same time, the readings will likely be different. Sometimes up to 20% different. That is ok! This difference in glucosevalue is because the sensor is reading glucose levels from your interstitial fluid, a thin layer offluid that surrounds the tissue cells below your skin, not your blood. -If you feel like the sensor reading isn't correct, use a finger stick value to confirm your glucose reading. Libre3 Sensor Alarms -Your S[employer]re [employer] Technologye3 reader device or smartphone with the Libre3 pancho must be within 33 unobstructed feet toutilize alarm features. -The alarm will sound for about 1 minute and repeat every 5 minutes until dismissed. You will not see your glucose level when the alarm sounds. Tap Dismiss Alarm & Check Glucose then scan your sensor. This will clear the alarm. You may notice the magnifying glass and blood drop icon during the first 12 hours of use. This isbecause the sensor takes some time to get more accurate after it is applied. -You do not have to check your glucose with a finger poke if your reading is in the target range. -When you see that icon for a high or low glucose after the first 12 hours of use, make sure to check your glucose with a finger poke to confirm the sensor reading. Consider keeping detailed food and activity records while wearing the sensor, or add notes in the smart phone pancho. Make sure you are sharing your data on the pancho or from the reader device at each diabetes educationappointment. Faheem Tips & FAQs: It is OK to bathe or shower with sensor. -Avoid frequent swimming and avoid direct contact with soap, shampoo or moisturizer. -When drying off, pat the sensor area dry, avoid rubbing over the area with a towel. This may causethe sensor to become loose and fall off or not work properly. Be careful dressing and undressing. Gently lift your clothing over the sensor. If your sensor falls off or stops working early, you can contact [employer] Customer Service and see if they will send you a replacement sensor. Contact by phone at or online at [email or web address].[email or web address], click on Support, then Sensor Support Request. To find the serial number for the sensor you're reporting, you can go into your [employer] pancho and in the Menu go to About and you'll see the number under Last 3 sensors Call [employer] for Technical Support: - Available 7 days a week 8 AM to 8 PM Eastern Time; excluding holidays. Remove the sensor if you will be having diathermy (heat using electrical current) treatments. It isokay to leave the Faheem sensor on during imaging procedures, including X-rays, CT scans, and MRI's.Sensor readings may be inaccurate during an MRI but should return to normal after one hour. If traveling via plane, it is recommended that you notify security personnel when going through airport security screening. -You can go through X-ray machines while wearing a sensor or request a pat down. -It is NOT recommended to go through a full-body?? scanner. If required to go through a full-bodyscanner, you should request an alternate screening. -An unused sensor in the original packaging that is in your carry-on luggage can go through the x-ray screening machine. Insurance Information Commercial Insurance: A prescription for Libr day sensors will be sent to your pharmacy. If it is not covered, please call the [employer] Customer Service Voucher Line at [phone]. The boggs for sensors should be no morethan $75 for 1 month supply (2 sensors). Out of pocket cost should be no more than $75/month (for 2 sensors). documented in this encounter Progress Notes * Kristina Strauss RN - 04/11/2025 7:30 AM CDT Images from the original note were not included. Subjective: Type 2 Diabetes in Visit #1 Brenda Calvin attends her diabetes education visit today in clinic. Brenda was referred by Endocrinology for diabetes education. This is Brenda's second , she did not have a history of diabetes in her prior . This is an individual appointment. No group option available/appropriate for patient at this time. What is the most important concern you want to discuss today? No specific questions or concerns. Brenda met with Donita last week on 04/03. 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 Bed: midnight Time Typical Meal or Snack Beverages First Meal None Snack None Second Meal 12 pm [place]: Ques[place] with ham [place] with ham, chowdhury Snack None Third Meal 5 pm at work Sometimes meal served at work: country fried steak, mashed potatoes with butter & salt Family/partner drops off meal: homemade [place] meal - rice, meat, salsa, sometimes beans Water, sometimes OJ or apple juice (diluted) Snack Sometimes none OR leftovers from meal brought to work OR yogurt OR fruit (orange or apple) ORbowl of cereal Reported nutrition changes: working to reduce carbohydrate serving and increasing protein/vegetables,, cut out all regular pop Beverages: occasional juice - otherwise water, Zero sugar Gatorade, sparkling water vitamin/supplements: yes daily Nausea/vomiting: occasionally Food aversions/nutrition preferences: sometimes aversion to pasta Dining out: yes Physical Activity: Physical activity and exercise: no routine activity Objective: Gestational age: Unknown - Patient reports 28 weeks There were no vitals taken for this visit. Wt Readings from Last 3 Encounters: 04/03/25 270 lb 11.2 oz (122.8 kg) (>99%)* * Growth percentiles are based on CDC (Girls, 2-20 Years) data. Reviewed recent glucose results: Lab results related to diabetes have been reviewed. Assessment and Plan: Assessment: Reviewed all visit 1 topics from the Gestation Diabetes BASICS curriculum. Connected patient's Faheem account to clinic cloud and reviewed glucose data in detail with patient.Instructed patient to record glucose levels either in record book provided or in Faheem pancho notes. Discussed glucose targets and how to identify a pattern of elevated readings. Fasting glucose levels appear to be within target. Post-meal glucose elevations above target often noted though patient open to making lifestyle changes. Thoroughly discussed healthy eating and physical activity recommendations. Discussed utilizing the plate method and reviewed carbohydrate serving sizes. Encouraged patient to avoid regular juice and lemonade products, choosing zero- sugar or diet options instead. Briefly discussed insulin recommendations but patient declined. Instructed patient to contact Endo if she has a pattern of elevated glucose levels to discuss/begin Glyburide as discussed at her last Endo visit. Patient in agreement with plan. Provided GDM BASICS book and record book. Follow up in 1 week. Note routed to referring provider with update. Plan: Glucose Monitoring plan: -Discussed glucose testing times and target ranges. -Check blood glucose levels 4 times daily. Fastin-94 mg/dL and 1 hour post meal: <140mg/dL or 2 hour post meal <120mg/dL -Call IDC if having 2 or more unexplained high glucose levels. Food Plan: -Instructed on eating for better health for gestational diabetes mellitus. -Avoid sweetened beverages. -Encouraged patient to eat three meals a day with snacks as needed. -Reviewed carbohydrate containing foods and recommended portions following the plate method. Medication Review: -Patient declined insulin. -Continue Metformin XR as prescribed. -If you have a pattern of 2 elevated readings within 3 days, contact Endo to discuss Glyburide. Goals: Date: Category: Goals: Progression: 04/11/2025 Monitoring Diabetes Record blood sugars four times daily from [employer] pancho: Fasting and 1 hour after the start of each meal. Just Starting 04/11/2025 Reducing Risk of Diabetes Complications Call Endocrinology ([phone]) if you have two unexplained high blood sugars in a three day period that occur at the same time of day. Just Starting 04/11/2025 Eating Healthy Eat 3 balanced meals per day containing a source of protein, fiber and carbohydrate. Just Starting Follow up: Diabetes Education: 04/18 Endo: 04/24 This visit was conducted as a: Office Visit Time spent with patient: 42 minutes Education content taught can be found in the diabetes education smartform. documented in this encounter Plan of Treatment Upcoming Encounters Date Type Department Care Team (Late st Contact Info) Description 05/22/2025 11:00 AM CDT Telemedicine [place] [address] [place] [address] [place] [address] Shannan Marcos PA-C [address] [place], [place] [address] 06/05/2025 11:30 AM CDT Telemedicine [place] [id number] Endocrinology [address] [place] [address]. [place], [place] [address] Johana Alcaraz PA-C [address] [place], [place] [address] Scheduled Referrals Name Type Priority Associated Diagnoses [...] Primary documented in this encounter Care Teams Drier Take Off Tender Relationship Specialty Start Date End Date Pcp, [place] [address] PCP - General 04/03/25 documented as of this encounter
--- OUTSIDE RECORDS SUMMARY | 2025-05-08 11:30 | XMS_ITS | Encounter Summary ---
Author Organization [facility] Address [address] [address] Care Team Providers Care Network Coordinator Name Role Phone Pcp, Pt Declines Primary Care Provider [phone] Reason for Visit * Reason Comments Diabetes Encounter Details Date Type Department Care Team (Late st Contact Info) Description 05/08/2025 11:30 AM CDT Telemedicine [place] [address] [place] [address]. [place], [place] [phone] Johana Alcaraz PA-C [address] [place] [address] Type 2 diabetes mellitus with hyperglycemia, without long-term current use of insulin (HRC) (Primary Dx); Pre-existing type 2 diabetes mellitus during , antepartum; Encounters for administrative purposes Social History Tobacco Use Types Packs/Day Years Used Date Smoking Tobacco: Never Smokeless Tobacco: Never Comments Unknown Sex and Gender Information Value Date Recorded Sex Assigned at Not on file Legal Sex Female 9:02 AM CDT Gender Identity Not on file Sexual Orientation Not on file documented as of this encounter Progress Notes * Yaneli Mittal RN - 05/08/2025 11:30 AM CDT Lvm for pt to call back, appears she is using the kimo but is not connected. * Johana Alcaraz PAChristian - 05/08/2025 11:30 AM CDT Patient did not show up on [employer]. Called patient 2 times by phone without answer. Left VM. Will update OBGYN. Has appt scheduled with Shannan 05/22. Johana Alcaraz PA-C -------INCOMPLETE VIRTUAL DIABETES IN PROGRESS NOTE Office Details N/M N. F/E/L Labs and eye Other Important Items Continue metformin through first tri then switch to insulin if needed. Has been hesistant to insulin in past. Would start glyburide if needed Needs follow up with [facility] Provider's location at time of visit: Home Patient's location at time of visit: Home Virtual Visit: Via [employer] SUBJECTIVE: Chief Complaint: Brenda Calvin is a 19 y.o. female here for management of diabetes in . 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 Last A1C Current Diabetes Regimen Metformin 1000 mg b.i.d. Has declined insulin in the past Prepregnancy Diabetes Regimen Hypoglycemia Risk Low. Typically occurs. Diabetes Medications Previously Tried and Failed Diet Carb control. meals. Breakfast occurs at am. Lunch occurs at am/pm. Supper occurs at pm. Exercise Walking. Pertinent Past Medical History Family History of Diabetes Social History/Other Pertinent History Has failed appointments with [facility]. Last Eye Exam > 1 year ago. Last Foot Exam Not addressed. Data Review: Continuous glucose monitoring data for the past 2 weeks was reviewed. See nursing note for completeCGM report. Nagy CGM Metrics Overall Trend OBJECTIVE: Physical Exam: General: Pleasant. No acute distress. Asking and answering questions appropriately. Labs: Diabetes diagnosis: August 2023 based on outside notes Labs were reviewed and any labs due were placed. ASSESSMENT: Brenda Calvin is a 19 y.o. female : 1. Type 2 diabetes mellitus with hyperglycemia, without long-term current use of insulin (HRC) 2. Pre-existing type 2 diabetes mellitus during , antepartum PLAN: Endocrine regimen recommendations: While check blood sugars at least four times daily--fasting, premeals and 1 hour post meals. If you forget to check your blood sugar 1 hour post meal, check at the 2 hour time point. See blood sugar goals below. Check Time Goal Blood Sugar in mg/dl Fasting and premeals 70-94 1 hour post meals 70-139 2 hours post meals 70-119 If you notice a pattern of blood sugars out of target range (2 or more at the same time of day) between appointments, please call our Endocrinology Nurse Line [phone]. Annual labs due today, complete at your convenience. Orders are in. Eye exam is due. A consult was placed today. If completing at an outside clinic, fax records to [phone]. Recommended follow up as noted below. Recommended Follow Up Endocrinology 05/22/25 Ophthalmology Make appointment now. [facility] My Chart message sent to patient with above details. All patient questions were answered. Patient did not have further l at this time. JOHANA ALCARAZ PA-C __ OFFICE USE ONLY: Discussions Had Nurse Line Provided Peripartum Insulin plan Thyroid plan BILLING: Total Time: Billing primarily based on time which includes time spent in chart prep that day, time spent with the patient, placing orders, and note writing. In addition, low to moderate medical decision requiredfor this session. * Bettye Grigsby RN - 05/08/2025 11:30 AM CDT 05/08 0805: LVM for patient to call back so we can help her get connected on [employer]. documented in this encounter Plan of Treatment Upcoming Encounters Date Type Department Care Team (Late st Contact Info) Description 05/22/2025 11:00 AM CDT Telemedicine [place] [address] [place] [address]. [place], [place] [phone] Shannan Marcos PA-C [address] [place] [phone] 06/05/2025 11:30 AM CDT Telemedicine [facility] [address] [place] [address]. [place], [place] [phone] Johana Alcaraz PA-C [address] [place] [phone] Scheduled Orders Name Type Priority Associated Diagnoses Orde r Schedule Albumin/Creatinine Ratio,Random Urine Lab Routine Type 2 diabetes mellitus with hyperglycemia, without long-term current use of insulin (HRC) Expected: 04/30/2025, Expires: 10/27/2025 HgbA1c - Collect in Lab Lab Routine Type 2 diabetes mellitus with hyperglycemia, without long-term current use of insulin (HRC) Expected: 04/30/2025, Expires: 10/27/2025 LDL Cholesterol, Direct Measured Lab Routine Type 2 diabetes mellitus with hyperglycemia, without long-term current use of insulin (HRC) Expected: 05/08/2025, Expires: 06/07/2025 Creatinine / GFR Lab Routine Type 2 diabetes mellitus with hyperglycemia, without long-term current use of insulin (HRC) Expected: 05/08/2025, Expires: 06/07/2025 documented as of this encounter Visit Diagnoses Diagnosis Type 2 diabetes mellitus with hyperglycemia, without long-term current use of insulin (HRC)- Primary Pre-existing type 2 diabetes mellitus during , antepartum Encounters for administrative purposes Encounters for unspecified administrative purpose documented in this encounter Care Teams Network Coordinator Relationship Specialty Start Date End Date Pcp, [place] [address] PCP - General 04/03/25 documented as of this encounter
--- NOTE | 2025-05-13 14:00 | CRLHL7_ITS ---
For Patients: As a result of the Century Cures Act, medical imaging exams and procedure reports are released immediately into your electronic medical record. You may view this report before your referring provider. If you have questions, please contact your health care provider. INDICATION: Obesity TECHNIQUE: Ultrasound OB pelvis transabdominal. Real-time delgado-scale imaging of the fetus was performed with color Doppler and spectral Doppler analysis of the umbilical artery without stress testing. COMPARISON: 05/06/2025 FINDINGS: Sonographic imaging demonstrates a single living intrauterine gestation. Fetus demonstrates a regular cardiac rate of 154 beats per minute. Fetus has a cephalic orientation. The placenta lies posterior. Amniotic fluid volume appears normal with a MVP of 5.0 cm. breathing movements, motion, and tone were all observed. IMPRESSION: Single viable intrauterine with a biophysical profile 06/20. Dictated by Clive Yanes MD @ 05/13/2025 4:31:58 PM (Electronically Signed)
--- OUTSIDE RECORDS SUMMARY | 2025-05-14 00:45 | XMS_ITS | Clinical Summary ---
Author Organization [facility] Address [address], [place] [address] Care Team Providers Care Outside Property Agent Name Role Phone Pcp, Pt Teena GUADALUPE Primary Care Provider Source Comments You are receiving this document [...] for each transition of care or referral. [facility] Allergies No known active allergies Medications * [...] (FLONASE) 50 MCG/ACT nasal solution Place 1 [place] into both nostrils two times a day. [...] organization. Date Type Department Care Team Description 05/08/2025 11:30 AM CDT Telemedicine [place] [address] [place] [address]. [place] [address] Johana Alcaraz PA-C Type 2 diabetes mellitus with hyperglycemia, without long-term current use of insulin (HRC) (Primary Dx); Pre-existing type 2 diabetes mellitus during , antepartum; Encounters for administrative purposes 05/08/2025 Telephone [place] [address] [place] [address]. [place] [address] Johana Alcaraz PA-C 04/18/2025 Notes/Orders [facility] [address] [place] [address] Fina Shahid RN, [facility] 04/11/2025 7:30 AM CDT Diabetes Ed [facility] [address] [place] [address] Kristina Strauss RN Type 2 diabetes mellitus with hyperglycemia, without long-term current use of insulin (HRC) (Primary Dx) 04/03/2025 8:00 AM CDT Office Visit [facility] [address] [place] [phone] Cindy Madera MD Type 2 diabetes mellitus with hyperglycemia, without long-term current use of insulin (HRC) (Primary Dx); Type 2 diabetes mellitus during , antepartum 04/01/2025 Lab Requisition [facility] [address] [facility]. [place], [place] [phone] Clinician, Subha Hill MD Encounter for screening for respiratory tuberculosis 02/13/2025 Telephone [place] [address] [place] [address]. [place], [place] [phone] Kelsi Pineda MD CONSULT (DM2) from Last 3 Months Social History Tobacco [...] Info) Description 05/22/2025 11:00 AM CDT Telemedicine [facility] [address] [place] [address]. [place], [place] [phone] Shannan Marcos, PA-C [address] [place] [address] 06/05/2025 11:30 AM CDT Telemedicine [facility] 3800 Endocrinology [address] [place] [address] Johana Alcaraz PA-C [address] [place] [address] Health Maintenance Due Date Last Done Comments [...] - season) 2024 04/24/2021, 04/03/2021 DTaP/Tdap/Td Vaccine (9 - Tdap) 04/29/2035 04/29/2025, 03/17/2022, 07/26/2018, Additional history exists Zoster/Shingles Vaccine (1 of [...] MITOGEN >10.000 IU/mL 04/07/2025 11:11 AM CDT [facility] Blood Venipuncture / Unknown 04/03/2025 4:14 PM CDT 04/06/2025 1:06 PM CDT us Not Found Clinician LAB_1 Final Res ult [facility] [address] * TB QuantiFERON Gold Plus TB2 (04/03/2025 4:14 PM CDT) TB2 0.508 IU/mL 04/07/2025 11:11 AM CDT [facility] Blood Venipuncture / Unknown 04/03/2025 4:14 PM CDT 04/06/2025 1:06 PM CDT us Not Found Clinician LAB_1 Final Res ult [facility] [address] * TB QuantiFERON Gold Plus TB1 (04/03/2025 4:14 PM CDT) Pathologist [facility] TB1 0.144 IU/mL 04/07/2025 11:12 AM CDT [facility] Blood Venipuncture / Unknown 04/03/2025 4:14 PM CDT 04/06/2025 1:06 PM CDT us Not Found Clinician LAB_1 Final Res ult Performing Organization Address [facility] de Phone Number [facility] [address] * (ABNORMAL) TB QuantiFERON Gold Plus NIL (04/03/2025 4:14 PM CDT) [facility] TB QuantiFERON Gold Plus Positive, M. tuberculosis Infection Likely(A) Negative, M. tuberculosis Infection NOT likely 04/07/2025 11:12 AM CDT [facility] NIL 0.116 IU/mL 04/07/2025 11:12 AM CDT [facility] TB1-NIL 0.02 IU/mL 04/07/2025 11:12 AM CDT [facility] TB2-NIL 0.39 IU/mL 04/07/2025 11:12 AM CDT [facility] Mitogen-NIL 9.88 IU/mL 04/07/2025 11:12 AM CDT [facility] Blood Venipuncture / Unknown 04/03/2025 4:14 PM CDT 04/06/2025 1:06 PM CDT Narrative [facility] - 04/07/2025 11:12 AM CDT The [...] immune response. For more information refer to: https://www.cdc.gov/mmwr/preview/mmwrhtml/ks2891u7.htm. us Not Found Clinician LAB_1 Final Res ult [facility] [address] [place] [address], [facility] from Last 3 Months Insurance [facility] PMAP Care Teams Outside Property Agent Relationship Specialty Start Date End Date Pcp, Pt MD Teena [place], [place] [address] PCP - General 04/03/25
--- OUTSIDE RECORDS SUMMARY | 2025-05-14 00:45 | XMS_ITS | Encounter Summary ---
Author Organization [facility] Address [facility] [place] [address] Care Team Providers Care Blueberry Grower Name Role Phone Marge Arevalo MD Primary Care Provider + Norma Aquino RD Unavailable [phone] Unavailable [phone] Reason for Visit * Reason Comments Other Encounter Details Date Type Department Care Team (Late st Contact Info) Description 11/21/2024 Care Coordination [facility] Maternal Medicine [address] [place], [place] [phone] Becky Oviedo RN Other Social History Tobacco Use Types Packs/Day Years Used Date Smoking Tobacco: Never Assessed Comments Unknown Sex and Gender Information Value Date Recorded Sex Assigned at Not on file Legal Sex Female 1:56 PM AVIONICS MANAGER Gender Identity Not on file Sexual Orientation Not on file documented as of this encounter Plan of Treatment Not on file documented as of this encounter Visit Diagnoses Not on filedocumented in this encounter Care Teams Blueberry Grower Relationship Specialty Start Date End Date Marge Arevalo MD [facility] [address] [place] [address] PCP - General Family Medicine 10/30/[address] [facility] [address] [place] [address] Assistant Grocery Store Manager Dietitian, Registered 11/04/[address] [place] [address] [place] [address] Assistant Grocery Store Manager Dietitian, Registered 02/24/25 documented as of this encounter
--- OUTSIDE RECORDS SUMMARY | 2025-05-14 00:45 | XMS_ITS | Continuity of Care Document ---
Author Organization [facility] Office Address [address] [place] [address] [address] [place] [address] Care Team Providers Care Apprentice Cosmetologist Name Role Phone BETTY LAMAS Primary Care Provider Assessment Encounter Date Assessment Date Assessment LastModified by Organization Details LastModified Time 05/08/2025 05/08/2025 The patient was informed about her diagnosis as detailed down below. At this time she will continue soaking for about 1 more week in duration and avoid covering at this time. She was informed that her procedure sites are healing without difficulty and she will be seen back on a PRN basis moving forward. [email or web address] Not available 05/08/2025 13:50:25 Plan of Treatment Reminders Order Date Submit Date Provider Last Modified By Organization Details Last Modified Time Details Appointments None record ed. Lab None record ed. Referral None record ed. Procedures None record ed. Surgeries None record ed. Imaging None record ed. Medication Orders None record ed. Patient TargetsNo targets recorded. Patient InstructionsNo instructions recorded. Reason for Referral None Reported. Procedures Surgical History Date Name Laterality Status Provider Name and Address Organization Details Recorded Time NAIL PROCEDURE DR Nigel Breen, DPBerta [address] [place], [address], [facility] 04/24/2025 13:45:08 Imaging Results None recorded. Procedure Notes None recorded. Medical Equipment None Reported. Allergies No known drug allergies Medications Name Sig Start Date Stop Date Status Note LastModified by Organization Details LastModified Time fluconazole 150 mg tablet TAKE 1 TABLET BY MOUTH TODAY, REPEAT IN 3 DAYS IF STILL SYMPTOMAT IC. active Not Available Not Available No t Available omeprazole 40 mg capsule,delaye d release TAKE ONE CAPSULE BY MOUTH DAILY active Not Available Not Available No t Available ketorolac 10 mg tablet TAKE ONE TABLET BY MOUTH EVERY 4 TO 6 HOURS (MAX OF 4 TABS PER DAY) TAKE WITH FOOD. active Not Available Not Available No t Available Ear Wax Removal Drops 6.5 % INSTILL 5 DROPS INTO THE EAR(S) EVERY 12 HOURS FOR 4 DAYS active Not Available Not Available No t Available norethindrone (contraceptive ) 0.35 mg tablet TAKE ONE TABLET(0. 35MG) BY MOUTH EVERY DAY active Not Available Not Available No t Available ondansetron 4 mg disintegrating tablet DISSOLVE 1 TABLET ON THE TONGUE EVERY 8 HOURS NEEDED FOR NAUSEA AND VOMITING active Not Available Not Available No t Available fluticasone propionate 50 mcg/actuation nasal spray,suspensi on INSTILL 1 SPRAY INTO EACH NOSTRIL TWICE A DAY active Not Available Not Available No t Available metformin ER 500 mg tablet,extende d release 24 hr TAKE 2 TABLETS (1,000 MG) BY MOUTH TWO TIMES A DAY WITH MEALS. active Not Available Not Available No t Available Microlet Lancet TEST BLOOD SUGAR 4 TIMES DAILY. active Not Available Not Available No t Available metoclopramide 10 mg tablet TAKE ONE TABLET BY MOUTH EVERY SIX HOURS NEEDED FOR NUASEA AND FOR VOMITING active Not Available Not Available No t Available Contour Next Test Strips USE TO TEST 4 TIMES A DAY. active Not Available Not Available No t Available Contour Next EZ Meter DIRECTED active Not Available Not Available No t Available FreeStyle Faheem 3 Plus Sensor device USE TO MONITOR GLUCOSE CONTINUOU SLY. active Not Available Not Available No t Available Vitals None Recorded Social History None recorded. Functional Status None recorded. Mental Status None recorded. Family History Nothing Reported. Medical History No medical history recorded. Gynecological HistoryNo gynecological history recorded. Obstetrics History GPAL:G 0 P 0 0 0 0 Past Encounters Encounter ID Performer Location Encounter Start Date Encounter Closed Date Diagnosis/Indication Diagnosis SNOMED-CT Code Diagnosis ICD10 Code Diagnosis Note [id number] Ernst Breen DPM [place] [facility] [address] [facility] [address] [place] [address] 04/24/2025 11:41:37 04/24/2025 15:07:46 Ingrowing nail 392166731 L60.0 s/p phenol and alcohol procedures to bilateral borders of bilateral Hallux digits 04/24/2025 [id number] Ernst Breen DPM [place] [facility] [address] [place] [address] 05/08/2025 11:03:37 05/08/2025 15:44:54 Ingrowing nail 037225242 L60.0 s/p phenol and alcohol procedures to bilateral borders of bilateral Hallux digits 04/24/2025 Health Concerns Section Related Observation LastModified by Organization Detai ls LastModified Time None Recorded Concern Status LastModified by Organization Details LastModified Time None Recorded Payers Encounter Date Sequence Insurance Name Policy Number Policy Vides Covered Member ID Vides Member ID Guarantor Name 05/08/2025 1 [place] - [place]) [id number] Brenda Campbell [id number] Brenda jose Notes Date Note Type Note Provider Name and Address Organization Details Recorded Time 05/08/2025 text/html Patient is a 19 year old female established patient who presents to clinic today for a recheck of bilateral border phenol and alcohol procedures performed on 04/24/2025. The patient mentions that she has had great resolution of symptoms post procedure and she has been maintaining after care instructions without difficulty at this time. Ernst Breen DPM [address] [place], [address], [facility] - [facility] 05/08/2025 13:50:32 OBGyn Episode No OBEpisode recorded.
--- OUTSIDE RECORDS SUMMARY | 2025-05-14 00:45 | XMS_ITS | Clinical Summary ---
Author Organization [facility] Address [address] [place] [address] Care Team Providers Care Utility Operator Yarn Name Role Phone Marge Arevalo MD Primary Care Provider + Norma Aquino RD Unavailable [phone] Unavailable [phone] Allergies No known active allergies Medications metFORMIN [...] 03/26/2025 10:00 AM CDT Allied Health/Nurse Visit [facility] [address] [place] [phone] [address]ino [address] Type 2 diabetes mellitus affecting in second trimester, antepartum (Primary Dx) 03/26/2025 Travel 03/06/2025 9:45 AM CDT Office Visit [facility] [address] [place] [phone] [address] Type 2 diabetes mellitus [...] - 02/18/2025 11:59 PM CDT Hospital Encounter [facility] [address] [place] [address] Laura Browne MD with type 2 diabetes mellitus in first trimester; Obesity affecting , antepartum, unspecified obesity type Discharge Disposition: Home or Self Care 02/18/2025 Travel from Last 3 Months Social History Tobacco Use Types Packs/Day Years Used Date Smoking Tobacco: Never Assessed Estimated Date of Delivery Comme nts Yes 06/24/2025 Based on Ultraso und Sex and Gender Information Value Date Recorded Sex Assigned at Not on file Legal Sex Female 1:56 PM CHURCH HISTORY TEACHER Gender Identity Not on file Sexual Orientation Not on file Last Filed Vital Signs Vital Sign Reading Time Taken Comments Blood Pressure 131/76 12/17/2024 2:05 PM CHURCH HISTORY TEACHER Pulse 73 12/17/2024 2:05 PM CHURCH HISTORY TEACHER Temperature - - Respiratory Rate - - Oxygen Saturation 99% 12/17/2024 2:05 PM CHURCH HISTORY TEACHER Inhaled Oxygen Concentration - - Weight - [...] 01/17/2006, 2005, Additional history exists COVID-19 VACCINE ( season) 2024 04/24/2021, 04/03/2021 PHQ-2 (once per [...] Obesity affecting , antepartum, unspecified obesity type [facility] NON-INVASIVE SCREENING PREQUEL Routine 12/17/2024 2:54 PM CHURCH HISTORY TEACHER Encounter for screening of mother from Last 3 Months or Most Recently Relevant to Health Maintenance Results * ECHO COMPLETE (02/18/2025 12:37 PM CDT) Anatomical Region Laterality Modality Echocardiography 02/18/2025 11:5 4 AM CDT Narrative 02/18/2025 12:41 PM CDT [id number]^NASHIF^SEREEN Study ID: [id number] [facility] [address] [place] [address] Echocardiogram Name: BRENDA MILLER Study Date: 02/18/2025 11:54 AM Patient Location: [facility] Gender: Female Patient Class: Outpatient : 2005 [...] to the left atrium. There is laminar olgcd-ba-qrsm shunting across the foramen ovale. Atrioventricular valves: [...] Procedure Note Jacqueline Doe MBBS - 02/18/2025 [id number]^PAVAN^LAURA Study ID:[id number] [facility] [address] [address] Echocardiogram Name: BRENDA MILLER Study Date: 02/18/2025 11:54 AM Patient Location:[facility] Gender: Female Patient Class:Outpatient : 2005 Age: 19 yrs Ordering Provider: LAURA BROWNE Referring Provider: LAURA BROWNE Performed By: Rolanda Carrero MD Reading Physician: Jacqueline Doe MD Reason For Study: with type 2 diabetes mellitus in [facility], [facility] Data: Number of fetuses: This is a [...] in to the left atrium. There is sonpmjobdkrw-em-sere shunting across the foramen ovale. Atrioventricular valves: [...] ECHO ORDERABLES Edited Result - Final * studentSN Non-Invasive Screening???Prequel (12/17/2024 2:54 PM CHURCH HISTORY TEACHER) See Scanned Result [facility] NON-INVASIVE SCREENING PREQUEL-Scann ed 12/27/2024 10:00 AM CHURCH HISTORY TEACHER [facility] Blood STRUCTURE OF LEFT UPPER LIMB / Unknown Venipuncture / Unknown 12/17/2024 2:54 PM CHURCH HISTORY TEACHER 12/17/2024 2:57 PM CHURCH HISTORY TEACHER us Lu Gaviria GC LAB - BLOOD ORDERABLES Final Result [facility] [address] [place] [address], [facility] [phone] from Last 3 Months or Most Recently Relevant to Health Maintenance Insurance [employer] Care Teams Utility Operator Yarn Relationship Specialty Start Date End Date Marge Arevalo MD [facility] & [address] [address] PCP - General Family Medicine 10/30/[address] [place] [address] [place], [place] [address] Sign Language Translator Dietitian, Registered 11/04/[address] [place] [address] [place], [place] [phone] Sign Language Translator Dietitian, Registered 02/24/25
--- OUTSIDE RECORDS SUMMARY | 2025-05-14 00:45 | XMS_ITS ---
Author Organization [facility] Address [address] [place] [address] Care Team Providers Care Fire Protection Fabricator Name Role Phone Marge Arevalo MD Primary Care Provider + Norma Aquino RD Unavailable [phone] Unavailable [phone] Diabetes Self-Management Education Status:Identified (Enrolling) Start date:11/04/2024 Continued Care and Services Coordination
--- OUTSIDE RECORDS SUMMARY | 2025-05-14 00:45 | XMS_ITS | Continuity of Care Document ---
Author Organization [facility] Office Address [address] [place] [address] [address] [place] [address] Care Team Providers Care Insurance Representative Name Role Phone BETTY LAMAS Primary Care Provider Assessment Encounter Date Assessment Date Assessment LastModified by Organization Details LastModified Time 04/24/2025 04/24/2025 The patient was informed about her diagnosis as detailed down below. At this time she underwent nail procedures and will be seen back in a few weeks for a recheck. [email or web address] Not available 04/24/2025 13:46:03 Plan of Treatment Reminders Order Date Submit [...] Recorded Time NAIL PROCEDURE DR Nigel Breen, ISAAC [address] [place], [address], [facility] 04/24/2025 13:45:08 Imaging [...] Available No t Available Vitals Date Recorded Body height Body mass index (BMI) [Percentile] Per age and sex Body mass index (BMI) Body weight Provider Name and Address Organization Details Last Updated DateTime 04/24/2025 170.18 cm 99.08 % 42 kg/m2 514508.7 6 g Petra Valle[place] - [facility] 04/24/2025 11:44:51 Social History None recorded. Functional Status None recorded. Mental Status None recorded. Family History Nothing Reported. Medical History No medical history recorded. Gynecological HistoryNo gynecological history recorded. Obstetrics History GPAL:G 0 P 0 0 0 0 Past Encounters Encounter ID Performer Location Encounter Start Date Encounter Closed Date Diagnosis/Indication Diagnosis SNOMED-CT Code Diagnosis ICD10 Code Diagnosis Note [id number] Ernst Breen DPM [place] [facility] [address] [facility] [place] [address] 04/24/2025 11:41:37 04/24/2025 15:07:46 Ingrowing nail 102842766 L60.0 s/p phenol and alcohol procedures to bilateral borders of bilateral Hallux digits 04/24/2025 Health Concerns Section Related Observation LastModified by Organization Detai ls LastModified Time None Recorded Concern Status LastModified by Organization Details LastModified Time None Recorded Payers Encounter Date Sequence Insurance Name Policy Number Policy Vides Covered Member ID Vides Member ID Guarantor Name 04/24/2025 1 [place]) [id number] Brenda Campbell [id number] Brenda jose Notes Date Note Type Note Provider Name and Address Organization Details Recorded Time 04/24/2025 text/html Patient is a 19 year old female new patient who presents to clinic today for evaluation of painful ingrown nails to both big toes. She mentions that she has had these for some time and presents today for definitive care. Ernst Breen, ISAAC [address] [place], [address], [facility] - [facility] 04/24/2025 13:46:13 OBGyn Episode No OBEpisode recorded.
--- OUTSIDE RECORDS SUMMARY | 2025-05-14 00:45 | XMS_ITS | Data Portability ---
Author Organization [facility], [employer] Address [address] [place] [address] Care Team Providers Care Assembly Line Brazer Name Role Phone WERNERERIC BETTY BENTLEY Primary Care Provider Assessment Encounter Date Assessment Date Assessment LastModified by Organization Details LastModified Time 04/24/2025 04/24/2025 The patient was informed about her diagnosis as detailed down below. At this time she underwent nail procedures and will be seen back in a few weeks for a recheck. [email or web address] Not available 04/24/2025 13:46:03 05/08/2025 05/08/2025 The patient was informed about [...] Recorded Time NAIL PROCEDURE DR Nigel Breen, DPM [address] [place], [address], [facility] 04/24/2025 13:45:08 Imaging [...] 04/24/2025 170.18 cm 99.08 % 42 kg/m2 678493.7 6 g Petra Vallecillo [place] - [facility] 04/24/2025 [...] SNOMED-CT Code Diagnosis ICD10 Code Diagnosis Note [id number] Ernst Breen DPM [facility] [address] [facility] [address] [place] [address] 04/24/2025 11:41:37 04/24/2025 15:07:46 Ingrowing nail 722501385 L60.0 s/p phenol and alcohol procedures to bilateral borders of bilateral Hallux digits 04/24/2025 [id number] Ernst Breen DPM [facility] [address] [facility] [address] [place] [address] 05/08/2025 11:03:37 05/08/2025 15:44:54 Ingrowing nail 610077336 L60.0 s/p phenol and alcohol procedures to bilateral borders of bilateral Hallux digits 04/24/2025 Health Concerns Section Related Observation LastModified by Organization Detai ls LastModified Time None Recorded Concern Status LastModified by Organization Details LastModified Time None Recorded Advance Directives Directive None Recorded Payers Insurance Date Sequence Insurance Name Policy Number Policy Vides Covered Member ID Vides Member ID Guarantor Name 04/24/2025 1 *SELF PAY* Sofia jose 05/08/2025 1 [place]) [id number] Brenda Campbell [id number] Brenda jose Notes Date Note Type Note Provider Name and Address Organization Details Recorded Time 04/24/2025 text/html Patient is a 19 year old female new patient who presents to clinic today for evaluation of painful ingrown nails to both big toes. She mentions that she has had these for some time and presents today for definitive care. Ernst Breen DPM [address] [place], [address], [facility] 04/24/2025 13:46:13 05/08/2025 text/html Patient is a 19 year old female established patient who presents to clinic today for a recheck of bilateral border phenol and alcohol procedures performed on 04/24/2025. The patient mentions that she has had great resolution of symptoms post procedure and she has been maintaining after care instructions without difficulty at this time. Ernst Breen, ISAAC [address] [place], [address], [facility] 05/08/2025 13:50:32 OBGyn Episode No OBEpisode recorded.
--- OUTSIDE RECORDS SUMMARY | 2025-05-14 00:45 | XMS_ITS | Encounter Summary ---
Author Organization [employer] Address [address] [address] Care Team Providers Care Cooling Machine Operator Name Role Phone Pcp, Pt Declines Primary Care Provider [phone] Encounter Details Date Type Department Care Team (Late st Contact Info) Description 04/18/2025 Notes/Orders [facility] Diabetes Education [address] [id number] Fina Shahid RN, [facility] Social History Tobacco Use Types Packs/Day Years [...] Info) Description 05/22/2025 11:00 AM CDT Telemedicine [facility] [address] [facility]. [place], [place] [address] Shannan Marcos PA-C [address] [place], [place] [address] 06/05/2025 11:30 AM CDT Telemedicine [facility] 38[address] Endocr[address]ology [address] [place] [facility]. [place], [place] [phone] Johana Alcaraz PA-C [address] [place], [place] [phone] documented as of this encounter Visit Diagnoses Not on filedocumented in this encounter Care Teams Cooling Machine Operator Relationship Specialty Start Date End Date Pcp, [place] [address] PCP - General 04/03/25 documented as of this encounter
--- OUTSIDE RECORDS SUMMARY | 2025-05-14 00:45 | XMS_ITS | Encounter Summary ---
Author Organization [employer] Address [address] [address] Care Team Providers Care Sash Assembler Name Role Phone Pcp, Pt Declines Primary Care Provider Encounter Details Date Type Department Care Team (Late st Contact Info) Description 05/08/2025 Telephone [place] [id number] [facility] [address] [place] [address] Johana Alcaraz PA-C [address] [place] [address] Social History Tobacco Use Types Packs/Day Years Used Date Smoking Tobacco: Never Smokeless Tobacco: Never Comments Unknown Sex and Gender Information Value Date Recorded Sex Assigned at Not on file Legal Sex Female 9:02 AM CDT Gender Identity Not on file Sexual Orientation Not on file documented as of this encounter Nursing Notes * Jeimy Patton RN - 05/08/2025 1:06 PM CDT Called clinic at number listed below and provided message below. * Jeimy Patton RN - 05/08/2025 12:46 PM CDT ----- Message from Johana Alcaraz sent at 05/08/2025 12:38 PM CDT ----- Please notify patient's OBGYN at [facility] Kecia Morales that pt failed appt at endo. [phone] looks to be the number. If not correct number, please locate correct one. documented in this encounter Plan of Treatment Upcoming Encounters Date Type Department Care Team (Late st Contact Info) Description 05/22/2025 11:00 AM CDT Telemedicine [place] [address] [place] [address]. [place], [place] [phone] Shannan Marcos PA-C [address] [place] [phone] 06/05/2025 11:30 AM CDT Telemedicine [place] [address] [place] [address]. [place], [place] [phone] Johana Alcaraz PA-C [address] [place] [phone] documented as of this encounter Visit Diagnoses Not on filedocumented in this encounter Care Teams Sash Assembler Relationship Specialty Start Date End Date Pcp, Pt MD Teena [place], [place] [address] PCP - General 04/03/25 documented as of this encounter
--- OUTSIDE RECORDS SUMMARY | 2025-05-14 00:45 | XMS_ITS | Encounter Summary ---
Author Organization [employer] Address [address] [address] Care Team Providers Care Housing Court Judge Name Role Phone Pcp, Pt Declines Primary Care Provider Encounter Details Date Type Department Care Team (Late st Contact Info) Description 04/01/2025 Lab Requisition [facility] [address] [facility] [place] [address] Clinician, Not Found, [place] [address] Encounter for screening for respiratory tuberculosis Social [...] Info) Description 05/22/2025 11:00 AM CDT Telemedicine [facility] [address] Endocr[address]ology [address] [facility]. [place], [place] [address] Shannan Marcos PA-C [address] [place], [place] [phone] 06/05/2025 11:30 AM CDT Telemedicine [facility] [address] End[address]ology [address] [facility]. [place], [place] [address] Johana Alcaraz PATaneshaC [address] [place] [address] documented as of this encounter Procedures Procedure [...] MITOGEN >10.000 IU/mL 04/07/2025 11:11 AM CDT [facility] Blood Venipuncture / Unknown 04/03/2025 4:14 PM CDT 04/06/2025 1:06 PM CDT us Not Found Clinician LAB_1 Final Res ult [facility] [address] [place], [place] [address] * TB QuantiFERON Gold Plus TB2 (04/03/2025 4:14 PM CDT) TB2 0.508 IU/mL 04/07/2025 11:11 AM CDT [facility] Blood Venipuncture / Unknown 04/03/2025 4:14 PM CDT 04/06/2025 1:06 PM CDT us Not Found Clinician LAB_1 Final Res ult Performing Organization Address City/[facility]/ZIP Co de Phone Number [facility] [address] * TB QuantiFERON Gold Plus TB1 (04/03/2025 4:14 PM CDT) TB1 0.144 IU/mL 04/07/2025 11:12 AM CDT [facility] Blood Venipuncture / Unknown 04/03/2025 4:14 PM CDT 04/06/2025 1:06 PM CDT us Not Found Clinician LAB_1 Final Res ult Performing Organization Address [facility] de Phone Number [facility] [address] * (ABNORMAL) TB QuantiFERON Gold Plus NIL (04/03/2025 4:14 PM CDT) [facility] TB QuantiFERON Gold Plus Positive, M. tuberculosis Infection Likely(A) Negative, M. tuberculosis Infection NOT likely 04/07/2025 11:12 AM CDT [facility] NIL 0.116 IU/mL 04/07/2025 11:12 AM CDT [facility] TB1-NIL 0.02 IU/mL 04/07/2025 11:12 AM CDT [facility] TB2-NIL 0.39 IU/mL 04/07/2025 11:12 AM CDT [facility] Mitogen-NIL 9.88 IU/mL 04/07/2025 11:12 AM CDT [facility] Blood Venipuncture / Unknown 04/03/2025 4:14 PM CDT 04/06/2025 1:06 PM CDT Narrative [facility] - 04/07/2025 11:12 AM CDT The [...] immune response. For more information refer to: https://www.cdc.gov/mmwr/preview/mmwrhtml/dd9024i1.htm. us Not Found Clinician LAB_1 Final Res ult [facility] [address] documented in this encounter Visit Diagnoses Diagnosis Encounter for screening for respiratory tuberculosis Screening examination for pulmonary tuberculosis documented in this encounter Care Teams Housing Court Judge Relationship Specialty Start Date End Date Pcp, [place] [address] PCP - General 04/03/25 documented as of this encounter
== END 2025-05-13 13:49 | disposition home or self-care (01) ==
LOC: US 13:49
PROVIDERS: PCP Family Medicine; Visit Provider Obstetrics & Gynecology
DX: O99.210 Obesity complicating pregnancy, unspecified trimester (principal); E66.01 Morbid (severe) obesity due to excess calories; Z3A.34 34 weeks gestation of pregnancy
CPT/HCPCS: 76819; T1013

== ENCOUNTER 2025-05-20 13:51 | Outpatient (CLI) | payer BC, SELFPAY ==
--- NOTE | 2025-05-20 14:00 | CRLHL7_ITS ---
For Patients: As a result of the Century Cures Act, medical imaging exams and procedure reports are released immediately into your electronic medical record. You may view this report before your referring provider. If you have questions, please contact your health care provider. OB ULTRASOUND BIOPHYSICAL PROFILE OBED by US: 06/24/2025. GA: 35 w, 0 d. Single. Comparison: 05/13/2025, 05/06/2025, 04/29/2025. INDICATION: Obesity. TECHNIQUE: Real time delgado scale imaging of the fetus was performed. Transabdominal. CERVIX: Not visualized. POSITIONING: Vertex. AMNIOTIC FLUID: 5.9 cm. SDP (N: greater than 2 x 1 cm) BIOPHYSICAL PROFILE: Total score: 2. Gross body movements: 2. tone: 2. Respiratory activity: 2. Amniotic fluid: 2. (SDP N: greater than 2 x 1 cm) Total 06/20. PLACENTA: Technique: Transabdominal. PLACENTA POSITION: Posterior. DOPPLER: heart rate: 169 bpm. IMPRESSION: Normal biophysical profile 06/20. Jack Fontana M.D. Diagnostic Radiologist [email or web address] JESE/oskar JR/Dictated by: Jack Fontana MD @ 05/21/2025 5:56:00 AM (Electronically Signed)
== END 2025-05-20 13:52 | disposition home or self-care (01) ==
LOC: US 13:51
PROVIDERS: PCP Family Medicine; Visit Provider Obstetrics & Gynecology
DX: O99.213 Obesity complicating pregnancy, third trimester (principal); E66.01 Morbid (severe) obesity due to excess calories; Z68.41 Body mass index [BMI] 40.0-44.9, adult; Z3A.35 35 weeks gestation of pregnancy
CPT/HCPCS: 76819

== ENCOUNTER 2025-05-20 15:13 | Outpatient (CLI) | payer BC, SELFPAY ==
[2025-05-20 15:37] VITALS: BP 117/64; PULSE 85; O2SAT 99
--- NOTE | 2025-05-20 16:32 | PC.OBNST ---
NST Note NST Note Start: 05/20/25 15:20 Freq: ONCE Status: Active Protocol: Document 05/20/25 16:26 ABP (Rec: 05/20/25 16:29 ABP [id number]) NST Note 2 Para (# of births) 1 EDC 06/24/25 Gestational Age In 35 Weeks & 0 Days Weeks & Days High Risk Factors Diabetes - Preexisting Type II Oral Hypoglycemics Patient Presented Other with Complaint(s) of Other Complaints Extended NST after BPP Reactive Yes Appropriate for Yes Gestational Age CHANEL Samson RN Date 05/20/25 Reactive Yes Appropriate for Yes Gestational Age CHANEL Eagle RN Date 05/20/25 OB NST charge Yes Complete NST Note Yes via Write Note The provider's electronic signature indicates the NST is reactive/appropriate for gestational age. *Note to provider: If an addendum is required, open the patient's chart and click on the note under the Nurse/Allied Health tab.
== END 2025-05-20 16:15 | disposition home or self-care (01) ==
LOC: OB OUT 15:15 → OB 15:15
PROVIDERS: PCP Family Medicine; Visit Provider Obstetrics & Gynecology
DX: O24.419 Gestational diabetes mellitus in pregnancy, unspecified control (principal); Z3A.35 35 weeks gestation of pregnancy
CPT/HCPCS: 59025; G0463

== ENCOUNTER 2025-05-27 13:52 | Outpatient (CLI) | payer BC, SELFPAY ==
--- NOTE | 2025-05-27 14:00 | CRLHL7_ITS ---
For Patients: As a result of the Century Cures Act, medical imaging exams and procedure reports are released immediately into your electronic medical record. You may view this report before your referring provider. If you have questions, please contact your health care provider. OB ULTRASOUND BIOPHYSICAL PROFILE, 05/27/2025 CLINICAL HISTORY: Obesity. COMPARISON: 05/20/2025, 05/13/2025, 05/06/2025. TECHNIQUE: Real time delgado scale imaging of the fetus was performed. Transabdominal imaging performed. FINDINGS: OBED by US: 06/24/2025. GA: 36 weeks 0 days. Cervix: Not visualized. Positioning: Vertex. Amniotic Fluid: 6.1 cm SDP. BIOPHYSICAL PROFILE: Gross Body Movements: 2 Tone: 2 Respiratory Activity: 2 Amniotic Fluid SDP: 2 Total Score: 8 Placenta: Technique: TA. Placenta Position: Posterior, right wall. Dopplers: Heart Rate: 152 bpm. BIOMETRY: BPD: 9.3 cm, 37 weeks 4 days. 92% HC: 33.4 cm, 38 weeks 1 day. 74% AC: 31.5 cm, 35 weeks 3 days. 44% FL: 7.1 cm, 36 weeks 3 days. 59% FL/AC Ratio: 22.6% HC/AC Ratio: 1.06. EFW: 2887 g, 6 lb 6 oz. Age by this US: 36 weeks 6 days. OBED by this US: 06/18/2025. Percentile by OBED: 58% IMPRESSION: 1. Sonographic gestational age 36 weeks 6 days and sonographic due date 06/18/2025. Sonographic age 6 days ahead of the clinical age. 2. Estimated weight 58th percentile. Abdominal circumference 44th percentile. 3. Normal biophysical profile score of 06/20. Jack Fontana M.D. Diagnostic Radiologist [email or web address] Transcribed: 3:22 pm DW/Dictated by: Jack Fontana MD @ 05/27/2025 2:59:00 PM (Electronically Signed)
== END 2025-05-27 13:53 | disposition home or self-care (01) ==
LOC: US 13:53
PROVIDERS: PCP Family Medicine; Visit Provider Obstetrics & Gynecology
DX: O99.213 Obesity complicating pregnancy, third trimester (principal); Z3A.36 36 weeks gestation of pregnancy
CPT/HCPCS: 76816; 76819; 87081; 87653; T1013

== ENCOUNTER 2025-05-27 15:49 | Outpatient (CLI) | payer BC, SELFPAY ==
[2025-05-29 08:14] LABS: Strep B DNA Probe POSITIVE (Negative)
[2025-05-29 08:31] LABS: Strep B Susceptibility Needed? No
== END 2025-05-27 15:50 | disposition home or self-care (01) ==
LOC: NFLDREF 15:50
PROVIDERS: PCP Family Medicine; Visit Provider Obstetrics & Gynecology
DX: Z34.83 Encounter for supervision of other normal pregnancy, third trimester (principal)
CPT/HCPCS: 87081; 87653

== ENCOUNTER 2025-06-03 13:29 | Outpatient (CLI) | payer BC, SELFPAY ==
--- NOTE | 2025-06-03 14:00 | CRLHL7_ITS ---
For Patients: As a result of the Century Cures Act, medical imaging exams and procedure reports are released immediately into your electronic medical record. You may view this report before your referring provider. If you have questions, please contact your health care provider. INDICATION: Obesity. TECHNIQUE: Ultrasound OB pelvis transabdominal. Real-time delgado-scale imaging of the fetus was performed without stress testing. COMPARISON: OB ultrasound 05/27/2025. FINDINGS: Sonographic imaging demonstrates a single living intrauterine gestation. Fetus demonstrates a regular cardiac rate of 145 beats per minute. Fetus has a cephalic orientation. Posterior placenta. Amniotic fluid volume single deepest pocket 6.1 cm 2/2. motion 2/2. tone 2/2. breathing movements 2/2. IMPRESSION: Single viable intrauterine with a biophysical profile 06/20. Dictated by Vinny Mohamud MD @ 06/05/2025 10:23:06 PM (Electronically Signed)
== END 2025-06-03 13:30 | disposition home or self-care (01) ==
LOC: US 13:29
PROVIDERS: PCP Family Medicine; Visit Provider Obstetrics & Gynecology
DX: O99.210 Obesity complicating pregnancy, unspecified trimester (principal); E66.01 Morbid (severe) obesity due to excess calories; Z68.41 Body mass index [BMI] 40.0-44.9, adult
CPT/HCPCS: 76819; T1013

== ENCOUNTER 2025-06-03 15:02 | Inpatient (IN) | payer BC, SELFPAY ==
[2025-06-03 15:06] VITALS: BP 132/73; PULSE 83; O2SAT 93
--- NOTE | 2025-06-03 15:53 | W.PM.LDBA ---
Subjective History of Present Illness Date Seen: 06/03/25 Narrative: Patient is being admitted to Labor and Delivery for IOL. She is a 19 year old at 37 0/7 weeks gestation. Her full history and physical was dictated by Dr. Connolly today. Please see this for details. Specific Issues/Plans G 2 P 1001 It is a boy! Partner: Max (this will be his first baby) H&P by NDP on 06/03/2025. # Not compliant with care Missed endocrinology appointments on 05/08/25 and 05/22/25 # Type 2 Diabetes. Diagnosed 08/2023. Poorly controlled: referral placed to Endocrine and STAT MFM 11/26/24: Declines insulin, Metformin 1000 mg BID-04/03/25 Baselines pre E labs: P/c: 0.03 Total protein <5, ALT 64 and AST 62, but both improved from Aug 2024. 24 hour urine ordered: not completed as of 32 weeks; will defer. A1C each trimester 1st trimester: 8.0 2nd trimester: 5.9 3rd trimester: 6.1 daily low dose aspirin beginning at 12 weeks Nutrition consult: Complete MFM consult and level 2 US (01/29 in [facility]) [x] echo 02/18/25 [x] stat referral to endo placed again on 02/05, pt only checking sugar 1x daily - consider continuous glucose monitor-Completed on 04/03/25 *Not compliant with endo care - Difficulty with continuous glucose monitor and won't do fingerstick As of 05/08, no blood glucose data for 1+ week - awaiting new continuous glucose monitor 05/13/25: Started using new continuous glucose monitor over the weekend. Blood sugar log reviewed for the last two days: Fasting 70-80, 2 hour postprandial 110-120. Twice weekly testing starting at 32 weeks (BPP/NST Forms completed) Growth US every 4 weeks beginning at 28 weeks May need delivery at 37 weeks due to non compliance, inability to adequately monitor BS control. # BMI 42.2 Nutrition consult Refer to anesthesia placed 05/04: completed #Fatty liver Elevated liver enzymes # H/o depression. Took sertraline in past. Currently stable w/o medication # Teen # Varicella and Hep. B non immune # Baseline EKG possibly abnormal referral to cardiology placed- Missed her appointment on 12/19/24 * repeat EKG 05/08/2025: Normal sinus rhythm, right bundle branch block (benign), suspect leads 2 and aVR were swithced. Repeat EKG next visit. 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 Nasal bone was visualized. Sonographic biometry agrees with gestational age predicted by assigned OBED. The patient should be offered AFP screening at 15-20 weeks gestation. Consult recommendations: Genetic screening, planning on NIPT for screening. Recommend low-dose aspirin, may continue on metformin 500 mg b.i.d. they do recommend insulin. She has stopped vaping since becoming , she may use nicotine replacement therapy as clinically indicated. Baseline preeclampsia labs. Recommend repeat A1c at 28 weeks and on admission to Labor and delivery for delivery. Recommend rescheduling with endocrinology. Discussed importance of regular blood glucose monitoring and reviewed goal. Abnormality referral. Baseline EKG. Nutrition counseling, given NAFLD. Detailed anatomy assessment at 18-20 weeks, echocardiogram, serial growth ultrasounds every 4 weeks starting at 28 weeks, surveillance with twice weekly BPP starting at 32 weeks. Deliveries recommended by 39 weeks or sooner as clinically indicated. 12/26/24: AMPLIFY NIPT: Low risk, male fetus. 02/18/25: echo: Normal cardiac anatomy. 04/03/2025: Vertex, SDP: 5.8, BPD: More than the 97th percentile, HC: More than the 97th percentile, AC: More than the 97th percentile, FL: 58.2 percentile. EFW: 16 13 g, more than the 97th percentile 04/29/2025: Cephalic, SDP 5.6 cm, EFW 97%, AC>97%, BPD >97%, HC 97%, FL 59%. 05/27/25: Vertex. EFW 2887 at 58th percentile - BPD 92%, HC 74%, AC 44%, FL 59%. 06/20 BPP. MVP 6.1 cm. Vaccinations: Flu: 12- Covid: completed initial series. Recommended booster. Declines. Tdap: 04/29/25 32 week mental health: [] OB - Problem Based A/P Additional Plan (1) Type 2 diabetes mellitus: Status: Chronic (2) : Status: Acute Plan Cook catheter placed as noted above at around 4:15 PM. To begin low-dose pitocin after midnight. Morphine and vistaril prn for pain overnight. GBS positive - begin ampicillin now. Continuous monitoring once pitocin is started. Discontinue metformin. Begin sliding scale insulin with meals until active labor, then sugars per type 2 DM protocol. OB Exam Physical Exam Vital signs: Pulse BP Pulse Ox 83 132/73 93 06/03/25 15:06 06/03/25 15:06 06/03/25 15:06 Narrative: tracing: Baseline 135 / accelerations present / no decelerations / moderate variability Physical exam: Vitals as noted above. General: No acute distress, accompanied by her mother Psych: Alert and oriented x 3, full affect HEENT: Normocephalic, atraumatic Pelvic exam: Cervix 2 / 50 / -3 Using aseptic technique, Cook catheter placed through the endocervix. Intrauterine and intravaginal balloons inflated to 60 cc. Patient tolerated procedure well.
[2025-06-03 16:24] LABS: Hematocrit 33.5 % (33.0-51.0); Hemoglobin* 11.0 gm/dL (12.0-16.0); Immature Granulocytes Abs Auto 0.03 K/uL (0.00-0.30); Immature Granulocytes Pct Auto 0.4 %; Lymphocytes Absolute Auto 2.44 K/uL (0.90-2.90); Mean Corpuscular HGB Conc 33 gm/dL (32-36); Mean Corpuscular Hemoglobin 26 pg (26-34); Mean Corpuscular Volume 79 fL (80-100); RDW Coefficient of Variation % 15.2 % (11.5-15.5); Red Blood Count 4.24 m/uL (4.00-5.20); White Blood Count* 8.10 K/uL (4.50-11.00)
[2025-06-03 16:28] LABS: Slide Review Reflex No
[2025-06-03] MEDS: AMPICILLIN 2 GM in 0.9 % SODIUM CHLORIDE Mini-bag 100 ML IVPB (16:37)
[2025-06-03 19:52] VITALS: PULSE 87; O2SAT 98
[2025-06-03 19:54] VITALS: BP 133/79; PULSE 81
[2025-06-03 19:55] VITALS: RESP 16; TEMP 36.6
[2025-06-03] MEDS: AMPICILLIN 1 GM in 0.9 % SODIUM CHLORIDE Mini-bag 100 ML IVPB (20:36)
[2025-06-03 23:58] VITALS: RESP 18; TEMP 36.7
[2025-06-03 23:59] VITALS: BP 140/75; PULSE 78
[2025-06-03] MEDS: OXYTOCIN 30 unit/500 ML in NS 30 UNIT/500 ML BAG IVPB (23:59)
[2025-06-04] VITALS (90 sets, daily range): BP systolic 86–138; BP diastolic 50–82; PULSE 74–130; RESP 16–28; TEMP 36.6–36.9; O2SAT 87–100; BMI 42.5
[2025-06-04] MEDS: LACTATED RINGERS 1000 ML 1,000 ML 125 ML IV ×2 (00:09→04:01)
[2025-06-04] MEDS: AMPICILLIN 1 GM in 0.9 % SODIUM CHLORIDE Mini-bag 100 ML IVPB ×3 (00:28→09:02)
[2025-06-04] MEDS: BUPIVACAINE 0.25% PF 10 ML 10 ML ML EPIDURAL (03:30)
[2025-06-04] MEDS: ROPIVACAINE 0.2% 100 ml 100 ML 12 MG EPIDURAL (03:44)
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
[2025-06-04] MEDS: PHENYLEPHRINE 100 MCG/ML SYRINGE IVP ×3 (04:27→05:08)
[2025-06-04] MEDS: ePHEDrine sulfate 5 MG/ML inj 10 MG IVP ×2 (05:22→08:46)
--- NOTE | 2025-06-04 07:26 | PM.OBPNL ---
Subjective Time Seen by Provider: 08:00 Date Seen: 06/04/25 Narrative: Brenda is a 19yo at 37w1d GA ongoing IOL in the setting of poorly controlled DM2. is otherwise complicated by noncompliance with care, obesity, fatty liver, adolescent , history of depression. Induction has included Cook catheter and Pitocin. Patient is comfortable with epidural in place. She denies any pain with contractions, occurring about every 3-4 minutes. No vaginal bleeding or leaking of fluid. Endorses active movement. Discussed potential next steps and augmentation of labor including amniotomy. Risk/benefits discussed, verbal consent obtained. Objective Exam: General: Alert and oriented, no acute distress Psych: Appropriate mood affect Abdomen: Gravid. EFW by ultrasound on 05/27/2025 2885g at 58%ile, AC 44%ile. Cervix: 5.5/70%-1. Vertex palpable. Amniotomy performed, uncomplicated with clear fluid. heart rate: Category 1. Baseline 140 beats per minute, moderate variability, accelerations present, no apparent decelerations [place]: Ward about every 3-4 minutes Vital Signs: Last Vital Signs Temp 98.2 F 06/04/25 06:45 Pulse 90 06/04/25 07:11 Resp 17 06/04/25 06:45 BP 121/54 L 06/04/25 07:11 Pulse Ox 98 06/04/25 06:45 Plan Plan: Brenda is a 19yo at 37w1d GA ongoing IOL in the setting of poorly controlled DM2. is otherwise complicated by noncompliance with care, obesity, fatty liver, adolescent , history of depression. - IOL has included Cook catheter and Pitocin. Pitocin is currently at 10mu/min, now s/p amniotomy where we will hold this for now. Modify pitocin prn pending FHR and toco data. - BG monitoring ongoing per protocol, declined recommended sliding scale insulin overnight. - BT B+ - GBS positive, s/p adequate treatment with ampicillin - Anticipate next exam in 4 hours, sooner as clinically indicated
[2025-06-04] MEDS: miSOPROStoL 800 MCG/4 TABLET PR (11:24)
--- NOTE | 2025-06-04 12:34 | W.PM.VAGD1_ITS ---
Procedure Procedure Done: Global Procedure Details: Normal spontaneous vaginal delivery Events: Other (Uncontrolled type 2 diabetes, adolescent , obesity, fatty liver disease) Intrapartal Events: Labor Induction Delivery augmentation: rupture of membranes and pitocin Delivery monitor: external FHT Route of delivery: Laceration description: Perineal - 1st Degree Delivery repair: Vicryl Estimated blood loss (mL): 600 Anesthesia type: Epidural Disposition: floor Complications: None Narrative: Brenda is a 19yo at 37w1d GA admitted for IOL in the setting of poorly controlled DM2. is otherwise complicated by noncompliance with care, obesity, fatty liver, adolescent , history of depression. heart tones on admission were category 1. Her labor was induced with Cook catheter and Pitocin, and epidural was utilized for pain management. Status of bag of harris: AROM performed intrapartum, return of clear fluids. heart tones during active labor were category 1 primarily. She was complete at 1056 and started pushing at 1103. She made excellent descent throughout the second stage of labor, and had a normal spontaneous vaginal delivery at 1111. heart tones during second stage of labor were category 2 for recurrent variable decelerations, typically with rapid return to a normal baseline of 125bpm with moderate variability. While , FHR was difficult to trace where intermittently heart rate could be heard at approximately 100- 110bpm. head delivered on the next contraction in OA position, restituted to LUDIVINA. Tight nuchal cord x1 was noted and could not be reduced, attempted to deliver through where the anterior shoulder was noted to descent to introitus then resistance was met. Somersault maneuver was utilized to deliver body, where the nuchal cord was immediately reduced following delivery of the body. was noted to be stunned in appearance, where stimulation occurred. The cord was cut and clamped after approximately 20 seconds of delayed cord clamping as respiratory effort was brief and intermittent to allow for transfer to warmer. On arrival to the warmer, baby was already demonstrating vigorous cry and improvement in tone and color. No resuscitation was required aside from ongoing stimulation. Active management of the third stage occurred with IV pitocin and gentle cord traction and the placenta delivered spontaneous and intact at 1116. Placenta was inspected before it was sent for pathologic evaluation. Cord gases sent: no Cord blood sent for infant ABO: no details: - Liveborn male fetus at 1111 - weight 8lb 8oz - APGARs were 8 and 9 at 1 and 5 minutes respectively Perineum and vagina were inspected, and the following lacerations were noted: small first degree laceration. Repair was completed in the usual fashion with 3- 0 vicryl under existing epidural analgesia. Excellent hemostasis was noted. The following counts were correct: sponges, needles, instruments. Mother and infant in stable condition following the . [place] Infant Gender: Male presentation: vertex Placental Delivery Description: Spontaneous Cord Description: 3 Vessels and Nuchal Cord
[2025-06-04] MEDS: ACETAMINOPHEN 500 MG TABLET 1000 MG PO ×2 (13:49→19:59)
[2025-06-04] MEDS: IBUPROFEN 600 MG TABLET PO (16:53)
[2025-06-05] VITALS: BP 127/83; PULSE 83; RESP 16; TEMP 36.6; O2SAT 98
[2025-06-05] MEDS: IBUPROFEN 600 MG TABLET PO ×2 (00:07→08:19)
[2025-06-05 04:48] VITALS: BP 115/74; PULSE 87; RESP 16; TEMP 36.6; O2SAT 97
[2025-06-05] MEDS: ACETAMINOPHEN 500 MG TABLET 1000 MG PO (04:51)
[2025-06-05 06:28] LABS: Hemoglobin* 9.3 gm/dL (12.0-16.0)
--- NOTE | 2025-06-05 08:13 | P.DS_ITS ---
DS: Providers Provider Time Seen by Provider: 08:13 Date Seen: 06/05/25 Date of admission: 06/03/25 15:02 Primary care physician: Marge Arevalo MD Admitting Clinician: Avis Mccray MD Consults: 06/03/25 15:15 Consult to Radiation Oncology Therapist [CONS] Routine Comment: Reason for Consult:: Social Service Consult Attending Physician on discharge: Chasity Connolly MD Date of Discharge: 06/05/25 DS: Diagnosis Discharge Diagnosis (1) Type 2 diabetes mellitus: Status: Chronic (2) Fatty infiltration of liver: Status: Chronic Problem details: Moderate seen on ultrasound (3) Morbid obesity with BMI of 40.0-44.9, adult: Status: Chronic (4) (normal spontaneous vaginal delivery): Status: Acute Problem details: Boy. Vazquez. Apgars 8/9. 8#8oz at 37w1d. Exam Narrative: Exam Narrative: GENERAL APPEARANCE: Pleasant, , well-groomed woman in no acute distress. VITAL SIGNS: as noted in nursing notes LUNGS: Clear to auscultation bilaterally without wheezes, rales or rhonchi. HEART: Regular rate and rhythm with normal S1 and S2. No gallop, rub or murmur. ABDOMEN: Gravid. Soft, nontender, nondistended, with normal bowels sounds throughout. Fundus firm at the umbilicus in the midline. PERINEUM: No swelling or hematoma. Repair intact. LOCHIA: Scant rubra. EXTREMITIES: No cyanosis, clubbing, or edema. No varicosities. NEUROLOGIC: Normal gait and balance. Normal deep tendon reflexes at bilateral patella 2+/2, equal without clonus. PSYCHIATRIC: alert and oriented x3. Normal speech pattern, eye contact and affect. SKIN: Warm, dry, and well perfused. Good turgor. No lesions, nodules or rashes. Const: Vital Signs, click to edit/add: Vital Signs - 24 hr 06/04/25 08:21 06/04/25 08:26 06/04/25 08:26 Temperature 98.2 F Pulse Rate 77 Pulse Rate [Pulse Oximeter] Respiratory Rate 16 Blood Pressure 102/57 L 104/59 L Blood Pressure [Ri ght Arm] Pulse Oximetry Oxygen Delivery Me thod 06/04/25 08:26 06/04/25 08:42 06/04/25 08:50 Temperature Pulse Rate 82 76 101 H Pulse Rate [Pulse Oximeter] Respiratory Rate Blood Pressure 86/52 L 90/54 L Blood Pressure [Ri ght Arm] Pulse Oximetry Oxygen Delivery Me thod 06/04/25 08:55 06/04/25 09:12 06/04/25 09:26 Temperature Pulse Rate 90 84 80 Pulse Rate [Pulse Oximeter] Respiratory Rate Blood Pressure 91/56 L 99/54 L 103/50 L Blood Pressure [Ri ght Arm] Pulse Oximetry Oxygen Delivery Me thod 06/04/25 09:31 06/04/25 09:41 06/04/25 10:13 Temperature 98.5 F Pulse Rate 85 93 Pulse Rate [Pulse Oximeter] Respiratory Rate 28 H Blood Pressure 108/54 L 104/58 L Blood Pressure [Ri ght Arm] Pulse Oximetry Oxygen Delivery Pr thod 06/04/25 10:13 06/04/25 10:42 06/04/25 10:56 Temperature 98.4 F Pulse Rate 96 97 Pulse Rate [Pulse Oximeter] Respiratory Rate 16 Blood Pressure 112/59 L 122/68 Blood Pressure [Ri ght Arm] Pulse Oximetry Oxygen Delivery Pr thod 06/04/25 11:17 06/04/25 11:17 06/04/25 11:33 Temperature Pulse Rate 100 96 Pulse Rate [Pulse Oximeter] Respiratory Rate 16 Blood Pressure 129/55 L 107/63 Blood Pressure [Ri ght Arm] Pulse Oximetry Oxygen Delivery Pr thod 06/04/25 11:47 06/04/25 11:47 06/04/25 11:57 Temperature 98.1 F Pulse Rate 88 Pulse Rate [Pulse Oximeter] Respiratory Rate 20 Blood Pressure 104/57 L Blood Pressure [Ri ght Arm] Pulse Oximetry 99 Oxygen Delivery Me thod 06/04/25 12:02 06/04/25 12:02 06/04/25 12:17 Temperature Pulse Rate 78 88 Pulse Rate [Pulse Oximeter] Respiratory Rate 20 Blood Pressure 120/65 114/67 Blood Pressure [Ri ght Arm] Pulse Oximetry Oxygen Delivery Me thod 06/04/25 12:17 06/04/25 12:32 06/04/25 12:32 Temperature Pulse Rate 82 Pulse Rate [Pulse Oximeter] Respiratory Rate 20 20 Blood Pressure 119/65 Blood Pressure [Ri ght Arm] Pulse Oximetry Oxygen Delivery Me thod 06/04/25 12:47 06/04/25 12:47 06/04/25 13:02 Temperature Pulse Rate 80 90 Pulse Rate [Pulse Oximeter] Respiratory Rate 20 Blood Pressure 126/69 124/69 Blood Pressure [Ri ght Arm] Pulse Oximetry Oxygen Delivery Me thod 06/04/25 13:02 06/04/25 13:03 06/04/25 13:03 Temperature Pulse Rate Pulse Rate [Pulse Oximeter] Respiratory Rate 20 Blood Pressure Blood Pressure [Ri ght Arm] Pulse Oximetry 87 L 87 L 87 L Oxygen Delivery Me thod 06/04/25 13:08 06/04/25 13:08 06/04/25 13:13 Temperature 98.1 F Pulse Rate Pulse Rate [Pulse Oximeter] 101 H Respiratory Rate Blood Pressure Blood Pressure [Ri ght Arm] Pulse Oximetry 99 99 100 Oxygen Delivery Me thod 06/04/25 13:13 06/04/25 16:16 06/04/25 19:58 Temperature 97.9 F 98.1 F Pulse Rate Pulse Rate [Pulse Oximeter] 90 83 80 Respiratory Rate 22 16 Blood Pressure Blood Pressure [Ri ght Arm] 121/80 116/79 Pulse Oximetry 100 97 98 Oxygen Delivery Me thod Room Air Room Air 06/05/25 00:00 06/05/25 04:48 Temperature 97.9 F 98 F Pulse Rate Pulse Rate [Pulse Oximeter] 83 87 Respiratory Rate 16 16 Blood Pressure Blood Pressure [Ri ght Arm] 127/83 115/74 Pulse Oximetry 98 97 Oxygen Delivery Me thod Room Air Room Air OB - DS: Summary Hospital Course Hospital Course: Brenda is a 19 year old G 2 P 1 now 2 at 37 and 1/7 weeks gestation that was admitted to the Center on 06/03/25 for cervical ripening and induction of labor due to poorly controlled type 2 diabetes in . She had an uncomplicated vaginal delivery. She delivered a viable male . Her is large for gestational age weighing 8 lb 8 oz at delivery. She is breast and bottle feeding. the patient has done well. She has no concerns today. I had her restart metformin today. Recommended that she make an appointment with her machinery dismantler within the next 4-6 weeks as they may want to change the medication she is on for diabetes now but she is no longer . Peripartum Data Laceration description: Perineal - 1st Degree complications: none Breeding Gender: Male Time Spent with Patient Time attestation: Total time spent providing and/or coordinating discharge services: Time spent: Less than 30 minutes Discharge Plan Discharge Disposition: Home, Self-Care Date of Admission: 06/03/25 15:02 Consulting Providers: Kecia Morales Primary Care Provider: Marge Arevalo Condition: Stable Anticipated Discharge Date/Time: 06/05/25 13:00 Discharge Medications: New docusate sodium 100 mg Capsule 100 mg PO BID Qty: 100 0RF ibuprofen 600 mg Tablet 600 mg PO Q6H PRNQty: 30 0RF Continued Classic 28 mg iron- 800 mcg tablet 1 tab PO QDAY metformin 500 mg tablet extended release 24 hr 1,000 mg PO BID (DME) blood sugar diagnostic Strip See Rx Instructions .Route Qty: 100 6RF Rx Instructions: check blood sugar twice a day Discontinued omeprazole 40 mg capsule,delayed release(DR/EC) 40 mg PO DAILY Qty: 30 2RF ondansetron 4 mg tablet,disintegrating 4 mg PO Q8H PRN (Reason: nausea and vomiting) Qty: 30 0RF (DME) FreeStyle Faheem 3 Plus Sensor Device See Rx Instructions .ROUTE .MEDSUPPLY Qty: 1 0RF Rx Instructions: As directed metoclopramide HCl [Reglan] 10 mg tablet 10 mg PO Q6H PRN (Reason: nausea and vomiting) Qty: 30 0RF (DME) lancets Misc See Rx Instructions .MEDSUPPLY Qty: 100 3RF Rx Instructions: Test blood sugar 4 times daily. (DME) Test Strips Misc See Rx Instructions .MEDSUPPLY Qty: 100 3RF Rx Instructions: Test blood sugar 4 times daily. (DME) lancets Misc See Rx Instructions .Route Qty: 200 3RF Rx Instructions: check blood sugar twice a day No Action (DME) Blood Glucose Meter Misc See Rx Instructions .MEDSUPPLY Qty: 1 0RF Rx Instructions: As directed (DME) Blood Glucose Meter Misc See Rx Instructions .Route Qty: 1 0RF Rx Instructions: check blood sugar twice a day Discharge Orders: Discharge Order (Routine); Ordered 06/05/25 Ordered By: Chasity Connolly Patient Education: Vaginal Delivery (DC), Type 2 Diabetes Management for Adults (DC) Additional Instructions: ACTIVITY RESTRICTIONS: Nothing vaginally for 6 weeks: no tampons or intercourse Off Work or School for a minimum of 6 weeks Symptoms to report to doctor: * Bleeding that saturates more than one pad per hour * Passing clots larger than the size of a golf ball * Pain not relieved by prescribed medication * Fever above 100.4 degrees Fahrenheit * A foul vaginal odor * Difficulty in emotions, mood, and functions * Thoughts of hurting yourself and/or * Painful, reddened area in your breast * Any drainage, redness, or tenderness in your IV/epidural site * Severe headache that doesn't improve after taking medications * Changes in vision, including temporary loss of vision, blurred vision, and/or light sensitivity * Upper abdominal pain (usually under ribs on the right side) * Decrease in urination or painful, frequent urinating * Chest pain * Shortness of breath * Tenderness or pain with redness and/swelling in the calf(s) of your leg Follow Up Appointments 1. 2-week visit: discuss infant care concerns, review control options and screen for anxiety/depression. 2. 6-week visit for an annual exam. 3. See your machinery dismantler within 4-8 weeks. consultation services are available to all mothers and babies for the first year after delivery.? To make an appointment, please call [phone]. Activity Level: Other Discharge Diet: Diabetic Follow Up Appointments: Marge Arevalo MD [Primary Care Provider, Family Practice] [facility] [Outside] Forms: [employer] Info Instructions
[2025-06-05] MEDS: METFORMIN ER 500 MG 1000 MG PO (08:19)
[2025-06-05 08:31] VITALS: BP 118/76; PULSE 69; RESP 16; TEMP 36.5; O2SAT 97
--- NOTE | 2025-06-05 09:35 | PC.SOCIAL ---
Social Service Consult: Received a social service consult for the pt. Checked in with charge nurse, Angelique, and no social work visit was needed. Pt has a very good support system and no other concerns noted. Social work to follow-up as needed.
--- NOTE | 2025-06-06 13:10 | PM.ANPOST ---
Post Anesthesia Note Post Anesthesia Note Patient seen: Inpatient Respiratory Status: adequate Cardiovascular Status: adequate Mental Status: baseline Pain: adequate Temp: baseline Anesthetic awareness: N/A Complications: none Follow care: none
== END 2025-06-05 13:12 | disposition home or self-care (01) | DRG 560 ==
PROVIDERS: Obstetrics & Gynecology; Admitting Provider Obstetrics & Gynecology; PCP Family Medicine; Visit Provider Obstetrics & Gynecology
DX: O24.12 Pre-existing type 2 diabetes mellitus, in childbirth (principal); O99.824 Streptococcus B carrier state complicating childbirth; O70.0 First degree perineal laceration during delivery; O99.214 Obesity complicating childbirth; E66.01 Morbid (severe) obesity due to excess calories; K76.0 Fatty (change of) liver, not elsewhere classified; Z79.4 Long term (current) use of insulin; Z79.84 Long term (current) use of oral hypoglycemic drugs; Z91.148 Patient's other noncompliance with medication regimen for other reason; Z37.0 Single live birth; Z3A.37 37 weeks gestation of pregnancy
CPT/HCPCS: 01967; 36415; 82962; 85018; 85025; 86592; 86850; 86900; 86901; T1013; A9270; C1726; J0290; J0665; J2795; J7120